=== PATIENT | male | born 1975 | race Caucasian/White ===

== ENCOUNTER 2017-09-13 15:48 | Emergency (ER) | payer OTHER ==
[2017-09-13] MEDS ORDERED: Aspirin Low Dose CHEW TAB* 81 MG PO ONE (15:53)
[2017-09-13] MEDS ORDERED: Nitroglycerin TAB 0.4 MG* 0.4 MG TAB SL ONE (15:54)
--- NOTE | 2017-09-13 16:01 | UC ---
Cardiac HPI - HPI Summary HPI Summary: Chest pain started earlier this afternoon on the toilet. Shaky and weak - History of Current Complaint Stated Complaint: SHORTNESS OF BREATH/SHAKY Time Seen by Provider: 09/13/17 15:52 Hx Obtained From: Patient Onset/Duration: Sudden Onset, Still Present Timing: Constant Initial Severity: Severe Current Severity: Severe Chest Pain Location: Mid Sternal Character: Crushing, Dull/Aching Aggravating Factor(s): Exertion Alleviating Factor(s): Nothing Associated Signs & Symptoms: Positive: Chest Pain, Weakness, SOB, Diaphoresis - Risk Factors Pulmonary Embolism Risk Factors: Smoking Cardiac Risk Factors: Smoking, Family History - Allergy/Home Medications Allergies/Adverse Reactions: Allergies Allergy/AdvReac Type Severity Reaction Status Date / Time environmental Allergy Congestion Uncoded 02/07/16 18:00 PMH/Surg Hx/FS Hx/Imm Hx Previously Healthy: Yes - Surgical History Surgical History: Yes Surgery Procedure, Year, and Place: right ankle, back with 2 carbon fiber frames , two rods with screws - Family History Known Family History: Positive: Cardiac Disease, Hypertension - Social History Occupation: Employed Full-time Lives: With Family Alcohol Use: None Substance Use Type: None Substance Use Comment - Amount & Last Used: 2 pots coffee per day Smoking Status (MU): Light Every Day Tobacco Smoker Have You Smoked in the Last Year: Yes Review of Systems Respiratory: Shortness Of Breath Cardiovascular: Chest Pain Is Patient Immunocompromised?: No All Other Systems Reviewed And Are Negative: Yes Physical Exam Triage Information Reviewed: Yes Appearance: Pain Distress Vital Signs Reviewed: Yes Dental: Positive: Gross Decay/Caries @ Neck exam: Normal Respiratory Exam: Normal Cardiovascular Exam: Normal Abdomen Description: Positive: Nontender, No Organomegaly Neurological Exam: Normal Psychological Exam: Normal Skin Exam: Normal Diagnostics - EKG Cardiac Rate: NL Cardiac Rhythm: Sinus: Normal ST Segment: : Normal - Anterolateral ST elevation C/W acute ND. - Differential Diagnoses - Chest Pain Differential Diagnosis/HQI/PQRI: Acute ND, ACS, Angina - Clinical Impression Provider Diagnoses: Acute ND - Physician Notifications Discussed Patient Care With: Oseas Whaley MD - Transfer to [facility] for acute ND Time Discussed With Above Provider: 16:07 Discharge - Discharge Plan Condition: Critical Disposition: [facility]
[2017-09-13 16:10] VITALS: BP 120/88
[2017-09-13] MEDS ORDERED: NS 0.9% 1000 ML* 1,000 ML IV SCH (16:30)
== END 2017-09-13 16:10 | disposition short-term general hospital (02) ==
LOC: UCCORT 15:48
DX: I21.9 Acute myocardial infarction, unspecified (principal); R53.1 Weakness; F17.210 Nicotine dependence, cigarettes, uncomplicated
CPT/HCPCS: 93005; 99213; A9270-GY; G0463

== ENCOUNTER 2017-09-13 16:41 | Inpatient (IN) | payer OTHER ==
[2017-09-13] MEDS ORDERED: Bivalirudin(*) 250 MG VIAL ONE (17:04)
[2017-09-13] MEDS ORDERED: Heparin 2 UNITS/ML IVPREMIX* 1,000 ML IV ONE (17:24)
[2017-09-13] MEDS ORDERED: Acetaminophen TAB* 325 MG PO PRN (17:33)
[2017-09-13] MEDS ORDERED: oxyCODONE/Acetamin 5/325 MG* TAB PO PRN (17:33)
[2017-09-13] MEDS ORDERED: Nitroglycerin TAB 0.4 MG* 0.4 MG TAB SL PRN (17:33)
[2017-09-13] MEDS ORDERED: Ondansetron INJ* 2 MG/ML VIAL IV PRN (17:33)
[2017-09-13] MEDS ORDERED: Zolpidem TAB* 5 MG PO PRN (17:33)
[2017-09-13] MEDS ORDERED: fentaNYL* 50 MCG/ML 2 ML VIAL (100 MCG VIAL) IV PRN (17:33)
[2017-09-13] MEDS ORDERED: Docusate CAP* 100 MG PO PRN (17:33)
[2017-09-13 17:42] LABS: Hematocrit 34 % (42-52); Hemoglobin 12.2 g/dl (14.0-18.0); Mean Corpuscular HGB Conc 36 g/dl (31-36); Mean Corpuscular Hemoglobin 33 pg (27-31); Mean Corpuscular Volume 92 fL (80-94); Mean Platelet Volume 8 um3 (7.4-10.4); Red Blood Count 3.73 10^6/ul (4.0-5.4); Red Cell Distribution Width 14 % (10.5-15); White Blood Count 9.6 10^3/ul (3.5-10.8)
[2017-09-13] MEDS ORDERED: NS 0.9% 1000 ML* 1,000 ML IV SCH (17:45)
[2017-09-13] MEDS ORDERED: Atorvastatin* 80 MG TAB PO ONE (17:50)
[2017-09-13] MEDS ORDERED: Midazolam* 1 MG/ML 5 ML VIAL (5 MG) ONE (17:57)
[2017-09-13] MEDS ORDERED: fentaNYL* 50 MCG/ML 2 ML VIAL (100 MCG VIAL) ONE (17:57)
[2017-09-13 17:58] LABS: Albumin 3.6 g/dL (3.2-5.2); BUN/Creatinine Ratio 13.8 (8-20); Calcium 8.1 mg/dL (8.6-10.3); EGFR African American 123.2 (>60); EGFR Non-African American 95.8 (>60); Globulin 2.4 g/dL (2-4); Total Bilirubin 0.3 mg/dL (0.2-1.0)
[2017-09-13] MEDS ORDERED: Heparin 2 UNITS/ML IVPREMIX* 3,000 ML IV ONE (17:58)
[2017-09-13] MEDS ORDERED: Iohexol 350 (CONTRAST) 200 ML MDV IV ONE (17:58)
[2017-09-13] MEDS ORDERED: Lidocaine 1% INJ* 10 MG/ML 30 ML SDV ONE (17:58)
[2017-09-13] MEDS ORDERED: nitroGLYCERIN DRIP* 250 ML ONE (17:58)
[2017-09-13 18:02] LABS: Troponin I 2.86 ng/mL (<0.04)
[2017-09-13] MEDS: Metoprolol Tartrate TAB* 25 MG PO SCH ×2 (18:16→22:33)
[2017-09-13] MEDS ORDERED: Heparin VIAL(*) 5000 UNITS/ML VIAL (FIVE THOUSAND) ONE (18:22)
[2017-09-13] MEDS ORDERED: Ticagrelor* 90 MG TAB PO ONE ×2 (18:22→23:00)
[2017-09-13 18:30] LABS: Hematocrit 37 % (42-52); Hemoglobin 13.1 g/dl (14.0-18.0); Mean Corpuscular HGB Conc 36 g/dl (31-36); Mean Corpuscular Hemoglobin 33 pg (27-31); Mean Corpuscular Volume 92 fL (80-94); Mean Platelet Volume 8 um3 (7.4-10.4); Red Blood Count 3.96 10^6/ul (4.0-5.4); Red Cell Distribution Width 14 % (10.5-15); White Blood Count 10.7 10^3/ul (3.5-10.8)
[2017-09-13 18:50] LABS: Albumin 3.9 g/dL (3.2-5.2); BUN/Creatinine Ratio 12.2 (8-20); Calcium 8.6 mg/dL (8.6-10.3); EGFR African American 118.4 (>60); EGFR Non-African American 92.1 (>60); Globulin 2.7 g/dL (2-4); Potassium 3.6 mmol/L (3.5-5.0); Total Bilirubin 0.4 mg/dL (0.2-1.0); Total Protein 6.6 g/dL (6.4-8.9)
[2017-09-13 18:53] LABS: Troponin I 17.93 ng/mL (<0.04)
[2017-09-13 22:42] LABS: Urine Bacteria Absent (Absent); Urine Bilirubin Negative (Negative); Urine Glucose Negative (Negative); Urine Nitrite Negative (Negative)
[2017-09-14 00:13] LABS: Troponin I > 74.00 ng/mL (<0.04)
[2017-09-14 00:30] LABS: Creatine Kinase 2397 U/L (10-223)
[2017-09-14 06:30] LABS: Hematocrit 37 % (42-52); Hemoglobin 12.9 g/dl (14.0-18.0); Mean Corpuscular HGB Conc 35 g/dl (31-36); Mean Corpuscular Hemoglobin 33 pg (27-31); Mean Corpuscular Volume 93 fL (80-94); Mean Platelet Volume 8 um3 (7.4-10.4); Red Blood Count 3.97 10^6/ul (4.0-5.4); Red Cell Distribution Width 14 % (10.5-15); White Blood Count 9.7 10^3/ul (3.5-10.8)
[2017-09-14 06:43] LABS: BUN/Creatinine Ratio 10.7 (8-20); Calcium 9.1 mg/dL (8.6-10.3); EGFR African American 128.3 (>60); EGFR Non-African American 99.7 (>60); Globulin 2.6 g/dL (2-4); Potassium 3.9 mmol/L (3.5-5.0); Total Protein 6.6 g/dL (6.4-8.9)
[2017-09-14] MEDS ORDERED: Perflutren Lipid Microsphere* 3 ML VIAL ONE (07:58)
[2017-09-14 08:29] LABS: Total Bilirubin 0.6 mg/dL (0.2-1.0)
[2017-09-14] MEDS ORDERED: Omeprazole CAP* 20 MG PO SCH (09:00)
[2017-09-14] MEDS: Aspirin Low Dose CHEW TAB* 81 MG PO SCH (09:04)
[2017-09-14] MEDS: Enoxaparin(*) 40 MG/0.4 ML SYR SUBCUT SCH (09:04)
[2017-09-14] MEDS: Atorvastatin* 80 MG TAB PO SCH (09:04)
[2017-09-14] MEDS: Ticagrelor* 90 MG TAB PO SCH ×2 (09:05→21:22)
[2017-09-14] MEDS: Metoprolol Tartrate TAB* 25 MG PO SCH ×2 (09:05→21:22)
--- NOTE | 2017-09-14 09:44 | ECHO ---
Patient: LUIS STEWART [facility] Rec#: [id number] : 1975 Date: 09/14/2017 Age: 42y Height: 175.26 cm / 69.0 in Weight: 74.84 kg / 164.9 lbs Sex: M BSA: 1.9 Room#: ICU 3 Admit Date#: 09/13/2017 Type: Inpatient Referring: Shree Ervin MD Reading: Shree Ervin MD Grey Roll Man: Debbie FergusonRD,RDMS Transthoracic Echocardiogram Indication: STEMI BP: 108/72 HR: 88 Rhythm: NSR with PVCs Findings History: S/P STEMI and PCI. HLD, PE, smoker Technical Comments: The study quality is fair. Completed 0900 Left Ventricle: The left ventricular chamber size is normal. Mild concentric left ventricular hypertrophy is observed. There are multiple regional wall motion abnormalities. There is severe hypo to akinesis of the mid to distal anterior, anterolateral,wall with akinesis of the apical wall and distal anteroseptal wall. The estimated ejection fraction is 35-40%. Visually estimated LVEF is closer to 40 %. Normal left ventricular diastolic filling is observed. Left Atrium: The left atrial chamber size is normal. Right Ventricle: The right ventricular chamber size and systolic function are within normal limits. Right Atrium: The right atrial cavity size is normal. Aortic Valve: The aortic valve is trileaflet. There is no evidence of aortic valve thickening. Systolic excursion of the aortic valve is normal. There is no evidence of aortic regurgitation. There is no evidence of aortic stenosis. Mitral Valve: The mitral valve leaflets appear normal. There is a trace of mitral regurgitation. There is no evidence of mitral stenosis. Tricuspid Valve: The tricuspid valve leaflets are normal. There is mild to moderate tricuspid regurgitation. There is evidence of mild pulmonary hypertension. Pulmonic Valve: There is no evidence of pulmonic valve thickening. There is a trace pulmonic regurgitation. Pericardium: There is no significant pericardial effusion. Aorta: The aortic root appears normal. There is no dilatation of the aortic arch. Pulmonary Artery: The main pulmonary artery appears normal. Venous: The inferior vena cava appears normal in size. There is less than 50% respiratory change in the inferior vena cava dimension. Contrast: Definity was used to optimize study. A total of 3 ml was used Conclusions Mild concentric left ventricular hypertrophy is observed. There are multiple regional wall motion abnormalities. There is severe hypo to akinesis of the mid to distal anterior, anterolateral,wall with akinesis of the apical wall and distal anteroseptal wall. The estimated ejection fraction is 35-40%. Visually estimated LVEF is closer to 40 %. There is a trace of mitral regurgitation. There is mild to moderate tricuspid regurgitation. No reports of prior studies offered for comparison. There is evidence of mild pulmonary hypertension. There is a trace pulmonic regurgitation. Measurements Name Value Normal Range RVIDd (AP) 2D 2.8 cm (0.9 - 2.6) RVDdMajor (2D) 2.8 cm (2.2 - 4.4) RAd ISD 4CH 4 cm (3.4 - 4.9) RA (A4C)W 3.6 cm (2.9 - 4.6) IVSd (2D) 1.2 cm (0.6 - 1) LVPWd (2D) 1.3 cm (0.6 - 1) LVIDd (2D) 4.7 cm (3.6 - 5.4) LVIDs (2D) 2.7 cm - LV FS (2D) 42 % (25 - 45) Aortic Annulus 2 cm (1.4 - 2.6) Ao root diameter (2D) 3.2 cm (2.1 - 3.5) Ascending Ao 2.9 cm (2.1 - 3.4) Aortic arch 2.2 cm (1.8 - 3.4) LA dimension (AP) 2D 3.3 cm (2.3 - 3.8) LAd ISD 4CH 5.5 cm (2.9 - 5.3) LA ISD 4CH W 3.8 cm (2.5 - 4.5) Name Value Normal Range LA ESV SP 4CH (A/L) 59.01 ml - LA ESV SP 2CH (A/L) 47.97 ml - LA ESV BP (A/L) 56.32 ml - LA ESV BP (A/L) index 29.5 ml/m2 - LA ESV SP 4CH (MOD) 53.07 ml - LA ESV SP 2CH (MOD) 44.62 ml - Name Value Normal Range MV E-wave Vmax 0.6 m/sec - MV deceleration time 200 msec - MV A-wave Vmax 0.5 m/sec - MV E:A ratio 1.2 ratio - P. vein S-wave Vmax 0.7 m/sec - P. vein D-wave Vmax 0.5 m/sec - P. vein S:D Vmax ratio 1.6 ratio - P. vein A-wave duration 107 msec - LV septal e' Vmax 0.09 m/sec - LV lateral e' Vmax 0.08 m/sec - LV E:e' septal ratio 7 ratio - LV E:e' lateral ratio 7.5 ratio - Name Value Normal Range AV Vmax 1.4 m/sec - AV VTI 28.5 cm - AV peak gradient 8 mmHg - AV mean gradient 4.1 mmHg - LVOT Vmax 1 m/sec - LVOT VTI 21.1 cm - LVOT peak gradient 4 mmHg - LVOT mean gradient 2.1 mmHg - KRYSTLE Vmax 0.8 m/sec - Name Value Normal Range TR Vmax 2.6 m/sec - TR peak gradient 27 mmHg - RAP 8 mmHg - RVSP 35 mmHg - IVC diameter 2.4 cm - Name Value Normal Range PV Vmax 0.8 m/sec - PV peak gradient 2.6 mmHg -
[2017-09-14] MEDS ORDERED: Metoprolol Tartrate TAB* 25 MG PO ONE (09:45)
--- NOTE | 2017-09-14 09:56 | RAD ---
INDICATION: STEMI. COMPARISON: Comparison is made with a prior chest x-ray study from August 14, 2014. TECHNIQUE: A portable view of the chest was obtained. FINDINGS: Cardiac and mediastinal contours appear to be within normal limits. The lungs are clear. There is elevation of the right hemidiaphragm. There is blunting of the right costophrenic angle possibly representing a small pleural effusion. IMPRESSION: POSSIBLE SMALL RIGHT PLEURAL EFFUSION.
[2017-09-14] MEDS ORDERED: Captopril TAB* 12.5 MG PO SCH (10:00)
[2017-09-14] MEDS: Captopril TAB* 12.5 MG PO SCH ×3 (10:28→21:21)
[2017-09-14 10:51] LABS: Troponin I 50.66 ng/mL (<0.04)
--- NOTE | 2017-09-14 12:35 | HP ---
HISTORY AND PHYSICAL: DATE OF ADMISSION: 09/13/17 CHIEF COMPLAINT: Chest discomfort with acute ST-segment elevation anterior wall myocardial infarction. HISTORY OF PRESENT ILLNESS: The patient is a 42-year-old gentleman, who was in his usual state of health until this afternoon at approximately 1:15 when he developed the onset of mid sternal chest discomfort, crushing in nature with radiation to the left arm. It was associated with weakness, shortness of breath , and diaphoresis. He eventually sought medical attention, waiting for his to come back home, and she came home and took him to [facility] in [place]. They arrived there at 3:48 p.m. An EKG was done immediately demonstrating acute ST-segment elevation anterior NE, he was transferred to [facility] and arrived in our ER at 1641. The patient was still having ongoing symptoms. Repeat EKG demonstrated ST- segment elevations as the patient was given Brilinta 180 mg and 4000 units of heparin in preparation to emergent cardiac catheterization. The risks and benefits were explained to him and the patient was examined and history was obtained. He understood it and wished to proceed emergently. PAST MEDICAL HISTORY: Significant for hyperlipidemia in addition to an anxiety disorder in addition to pulmonary emboli from DVT following surgery for ankle fracture with his anticoagulation stopped some 2 months ago. He denied any known history of diabetes or hypertension. CARDIAC RISK FACTORS: Include smoking. HOME MEDICATIONS: Include: 1. OxyContin. 2. Pantoprazole. 3. Trazodone. 4. Crestor 20 mg a day. FAMILY HISTORY: Hyperlipidemia, the patient denied diabetes or hypertension. REVIEW OF SYSTEMS: Pertinent to proceeding emergently to the cardiovascular laboratory: The patient denied any history of hematochezia, hematemesis, or hematuria. He has had no history of stroke or TIA. He has no history of renal insufficiency to the best of his knowledge and he is not allergic to contrast agents. He is having ongoing chest discomfort and mild shortness of breath as mentioned. PHYSICAL EXAMINATION VITAL SIGNS: When I saw him revealed vital signs: Blood pressure 158/88 with a pulse of 98, respirations were 20, O2 saturations 98% on room air, afebrile. HEENT: Conjunctivae pink. Sclerae clear. Mouth revealed moist mucosa. NECK: Supple. No increased JVP. Carotids had fair upstroke and volume. I cannot appreciate any definitive bruits. LUNGS: Revealed no accessory muscle usage. There were coarse breath sounds bilaterally with slight wheeze noted. HEART: Revealed no visible heaves, no palpable heaves or thrills. Heart sounds were somewhat distant in nature. Normal S1, S2. There was no significant systolic or diastolic murmur. ABDOMEN: Soft, nontender. EXTREMITIES: Without edema. Peripheral pulses were intact. Femoral pulse noted without bruit. NEURO: The patient is alert and oriented with normal mentation. MUSCULOSKELETAL: The patient moves all extremities appropriately. PSYCHOLOGICAL: The patient with normal affect. DIAGNOSTIC STUDIES: Repeat EKG done in the emergency room timed 1648 revealed sinus rhythm, heart rate 74, ST-segment elevation noted mildly in I, aVL with reciprocal changes in III and aVF, ST-segment elevation somewhat, peaked T waves were seen in V2 through V5 and minimally in V6, poor R waves were already identified in V2 and V3 with small Q wave already present in V4 through V6 and I and aVL. OVERALL ASSESSMENT: Lele presents now with slightly late presentation (almost 4 hours) into an anterior wall myocardial infarction. The patient has received heparin therapy, Brilinta therapy, aspirin therapy, and we will take him emergently to the cardiovascular laboratory for emergent intervention. He understands the risks and benefits and wishes to proceed and further management will be made pending results of the cardiac catheterization. [id number]/[facility] #: [id number] AMARILIS
[2017-09-14] MEDS ORDERED: Bismuth Subsalicylate* 524 MG/30 ML BTL PO PRN (14:27)
[2017-09-14] MEDS ORDERED: Al Hydrox/Mg Hydrox/Simet LIQ* 30 ML UDC PO PRN (14:57)
[2017-09-14] MEDS ORDERED: Omeprazole CAP* 20 MG PO ONE (15:00)
--- NOTE | 2017-09-14 18:24 | CATH ---
CARDIAC CATHETERIZATION AND INTERVENTIONAL REPORT: DATE OF PROCEDURE: 09/13/17 INDICATION FOR PROCEDURE: The patient presents with acute ST-segment elevation anterior wall myocardial infarction. PROCEDURE: The procedure was coronary arteriography, primary stenting of the proximal left anterior descending artery with a 2.75 x 16 mm long Synergy drug- eluting stent dilated to high pressure to obtain 2.9 mm, left heart catheterization, left ventriculography. DESCRIPTION OF PROCEDURE: The patient was interviewed and examined in the emergency room where the patient was in the throes of an acute anterior wall myocardial infarction. The risks and benefits were explained to him, he understood them, and wished to proceed. He was brought emergently to the cardiovascular laboratory, where a formal time-out was performed. The patient was prepped and draped in sterile fashion. The right groin area was anesthetized with 1% lidocaine. The right femoral artery was cannulated and a 6 -Tuvaluan introducer was placed. Coronary arteriography was performed utilizing a 5-Tuvaluan 4 curve right coronary catheter and guiding views were obtained using a VL 3.5 curve 6-Tuvaluan guide catheter. Of note, the patient had already received 4000 units of heparin in the emergency room and 180 mg of ticagrelor and full dose of 325 of aspirin. ACT was checked and found to be subtherapeutic and received a bolus of Angiomax and Angiomax drip was started. An 0.014 regular length All Star wire was advanced down the left anterior descending artery and primary stenting was performed with a 2.75 x 16 mm Synergy stent dilated to high pressure with no residual narrowing noted. The artery was then assessed both with wire in place and wire removed. Following this, a 5-Tuvaluan pigtail catheter was advanced to the ascending aorta where central aortic pressure was recorded. The catheter was then passed across the aortic valve into the left ventricle. The left ventricular pressure was recorded. The left ventriculography was performed utilizing a total of 24 cc of Omnipaque dye at a rate of 12 cc per second. The catheter was pulled back across the aortic valve to recheck gradient. At the end of the case, the catheter was removed and the sheath was sutured in place to be removed and hemostasis controlled with manual pressure in the intensive care unit. The patient was stable with resolution of his chest discomfort by the end of the case. The total contrast used was 140 cc of Omnipaque dye. The radiation exposure included 7.9 minutes of fluoro time. The air kerma radiation was 753 milligray. The DAP radiation was 4389 microgray/sq. m. RESULTS: HEMODYNAMIC DATA: Left heart catheterization - central aortic pressure was recorded at 113/73 with a mean of 92, left ventricular pressure 110 over left ventricular end- diastolic pressure of 20. LEFT VENTRICULOGRAPHY: Performed in the RIBEIRO projection revealed virtual akinesis of the mid-to- distal anterior wall and apical region with hyperdynamic contractility of the proximal and [id number] inferior wall. Overall ejection fraction estimated at 35% to 40%. No significant mitral regurgitation was seen. CORONARY ARTERIOGRAPHY: A. Left coronary artery: 1. Left main - widely patent with no significant stenosis seen. 2. Left anterior descending artery. The proximal portion of the left anterior descending artery had a 30% narrowing noted. Past this point after the first septal electrical sign wirer, there was a subtotally occluded LAD with 99% stenosis and PRADEEP I flow. It barely filled past this point showing a mid diagonal branch. On reconstitution of the vessel, it supplied multiple diagonal branches. There was a mild 25% to 30% narrowing seen just prior to the stented area. 3. Circumflex artery - a nondominant vessel supplying a high trifurcation marginal branch followed by a moderate-sized mid obtuse marginal branch which extended to low posterolateral and apical region. The continuation of the circumflex supplied a small low-lying posterior left ventricular branch. There was no significant stenosis seen throughout the course of the circumflex artery. B. Right coronary artery - a dominant vessel supplying multiple acute marginal branches, a small caliber PDA, and a larger first posterior left ventricular branch, followed by a thin second posterior left ventricular branch. There was [id number] disease in the proximal portion of the right coronary artery of 35% to 40%. The mid segment had a narrowing of 55% to 60%. There was mild disease seen in the distal vessel of 20%. INTERVENTION INTO SUBTOTALLY OCCLUDED LEFT ANTERIOR DESCENDING ARTERY: Successful reconstitution of subtotally occluded left anterior descending artery with primary stenting utilizing 2.75 x 16 mm long Synergy drug-eluting stent dilated to 2.9 mm with PRADEEP III flow, no dissection seen, and 0% residual stenosis. OVERALL ASSESSMENT: Significant coronary artery disease involving the left anterior descending artery after the take off of the first septal electrical sign wirer (mid left anterior descending artery) with critical 99% PRADEEP I flow lesion, successfully treated as described above. The patient has residual disease most importantly with the mid right coronary artery with 55% to 60% blockage, which will be assessed at a later time. Of note, given the fact that the patient presented several hours into his anterior wall myocardial infarction, most likely SERGIO inhibition in addition to beta-natividad therapy will be instituted in addition to high-dose statin therapy and dual antiplatelet therapy. The patient has a history of smoking, which clearly will need to be addressed in order to stabilize his cardiac status. Further management will be made during the hospital course with adjustment of medications as prescribed. [id number]/[facility] #: [id number] MTDD
[2017-09-14] MEDS ORDERED: NS 0.9% 1000 ML* 1,000 ML IV SCH (18:30)
[2017-09-14] MEDS ORDERED: NS 0.9% 250 ML* 250 ML IV ONE (19:00)
[2017-09-15] MEDS: Atorvastatin* 80 MG TAB PO SCH (08:43)
[2017-09-15] MEDS: Omeprazole CAP* 20 MG PO SCH (08:43)
[2017-09-15] MEDS: Enoxaparin(*) 40 MG/0.4 ML SYR SUBCUT SCH (08:43)
[2017-09-15] MEDS: Metoprolol Tartrate TAB* 25 MG PO SCH ×2 (08:44→22:25)
[2017-09-15] MEDS: Aspirin Low Dose CHEW TAB* 81 MG PO SCH (08:44)
[2017-09-15] MEDS: Ticagrelor* 90 MG TAB PO SCH ×2 (08:44→22:25)
[2017-09-15] MEDS: Captopril TAB* 12.5 MG PO SCH ×3 (08:44→22:25)
[2017-09-15 09:55] LABS: BUN/Creatinine Ratio 9.7 (8-20); Calcium 9.6 mg/dL (8.6-10.3); EGFR Non-African American 88.7 (>60); Potassium 3.9 mmol/L (3.5-5.0)
[2017-09-15] MEDS: Venlafaxine EXT RELEASE CAP* 37.5 MG PO SCH (12:28)
[2017-09-16] MEDS: Enoxaparin(*) 40 MG/0.4 ML SYR SUBCUT SCH (08:27)
[2017-09-16] MEDS: Atorvastatin* 80 MG TAB PO SCH (08:27)
[2017-09-16] MEDS: Omeprazole CAP* 20 MG PO SCH (08:27)
[2017-09-16] MEDS: Aspirin Low Dose CHEW TAB* 81 MG PO SCH (08:27)
[2017-09-16] MEDS: Ticagrelor* 90 MG TAB PO SCH ×2 (08:27→21:52)
[2017-09-16] MEDS: Venlafaxine EXT RELEASE CAP* 37.5 MG PO SCH (08:28)
[2017-09-16] MEDS: Metoprolol Tartrate TAB* 25 MG PO SCH ×2 (08:28→21:53)
[2017-09-16] MEDS: Captopril TAB* 12.5 MG PO SCH ×3 (08:28→21:52)
[2017-09-16 09:55] LABS: BUN/Creatinine Ratio 15.9 (8-20); Calcium 9.7 mg/dL (8.6-10.3); EGFR African American 121.6 (>60); EGFR Non-African American 94.5 (>60); Potassium 3.7 mmol/L (3.5-5.0)
--- NOTE | 2017-09-16 13:36 | ED ---
Evy Ortega Edward, scribed for Jameson Whaley MD on 09/13/17 at 1648 . 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 PT was trying to have a bowel movement when it started. The pt became diaphoretic and dizzy. The pain is a 9-10/10 constant pain located substernally near the shoulder radiating up to the jaw @ the L side and down the L arm. The pt also c/o of numbness in the L arm. PMHx hypotensive, PE couple of months ago. Pt states he has stopped taking blood thinners a couple of months ago. SHx knee surgery s/p shattered knee. - History of Current Complaint Hx Obtained From: Patient, EMS Onset/Duration: Started Hours Ago, Still Present Timing: Constant Current Severity: Severe Pain Intensity: 10 Pain Scale Used: 0-10 Numeric Chest Pain Location: Left Lateral Chest Pain Radiates: Yes Chest Pain Radiates To:: Arm - L, Jaw - L side Aggravating Factor(s): Nothing Alleviating Factor(s): Nothing Associated Signs and Symptoms: Positive: Chest Pain, Dizziness, Diaphoresis - Allergy/Home Medications Allergies/Adverse Reactions: Allergies Allergy/AdvReac Type Severity Reaction Status Date / Time No Known Drug Allergy Allergy See Comment Verified 09/16/17 11:09 environmental Allergy Congestion Uncoded 02/07/16 18:00 PMH/Surg Hx/FS Hx/Imm Hx Previously Healthy: No Cardiovascular History: Reports: Hx Hypotension Respiratory History: Reports: Hx Pulmonary Embolism - Surgical History Surgery Procedure, Year, and Place: right ankle, back with 2 carbon fiber frames , two rods with screws - Family History Known Family History: Positive: Cardiac Disease, Hypertension - Social History Alcohol Use: None Hx Substance Use: Yes Substance Use Type: Reports: Excessive Caffeine Substance Use Comment - Amount & Last Used: 2 pots coffee per day Hx Tobacco Use: No Smoking Status (MU): Light Every Day Tobacco Smoker Have You Smoked in the Last Year: Yes Review of Systems Positive: Skin Diaphoresis Eyes: Negative ENT: Negative Positive: Chest Pain Respiratory: Negative Gastrointestinal: Negative Genitourinary: Negative Musculoskeletal: Negative Skin: Negative Neurological: Other - Dizziness Psychological: Normal All Other Systems Reviewed And Are Negative: Yes Physical Exam - Summary Physical Exam Summary: VITAL SIGNS: Reviewed. GENERAL: Patient is a well-developed and nourished male who is lying comfortable in the stretcher. Patient is not in any acute respiratory distress. HEAD AND FACE: No signs of trauma. No ecchymosis, hematomas or skull depressions. No sinus tenderness. EYES: PERRLA, EOMI x 2, No injected conjunctiva, no nystagmus. EARS: Hearing grossly intact. Ear canals and tympanic membranes are within normal limits. MOUTH: Oropharynx within normal limits. NECK: Supple, trachea is midline, no adenopathy, no JVD, no carotid bruit, no c- spine tenderness, neck with full ROM. CHEST: Symmetric, no tenderness at palpation LUNGS: Clear to auscultation bilaterally. No wheezing or crackles. CVS: Regular rate and rhythm, S1 and S2 present, no murmurs or gallops appreciated. ABDOMEN: Soft, non-tender. No signs of distention. No rebound no guarding, and no masses palpated. Bowel sounds are normal. EXTREMITIES: FROM in all major joints, no edema, no cyanosis or clubbing. NEURO: Alert and oriented x 3. No acute neurological deficits. Speech is normal and follows commands. SKIN: Dry and warm Triage Information Reviewed: Yes Vital Signs On Initial Exam: Initial Vitals Temp Pulse Resp BP Pulse Ox 98.7 F 98 20 158/88 98 09/13/17 17:04 09/13/17 17:04 09/13/17 17:04 09/13/17 17:04 09/13/17 17:04 Vital Signs Reviewed: Yes Diagnostics - Vital Signs Vital Signs Temp Pulse Resp BP Pulse Ox 09/13/17 17:04 98.7 F 98 20 158/88 98 - Laboratory Result Diagrams: 09/14/17 06:10 09/16/17 09:19 Lab Statement: Any lab studies that have been ordered have been reviewed, and results considered in the medical decision making process. - EKG 1 EKG Interpretation: ST elevations in I, aVL, V2-V6. 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 PT was trying to have a bowel movement when it started. The pt became diaphoretic and dizzy. The pain is a 9-10/10 constant pain located substernally near the shoulder radiating up to the jaw @ the L side and down the L arm. The pt also c/o of numbness in the L arm. PMHx hypotensive, PE couple of months ago. Pt states he has stopped taking blood thinners a couple of months ago. SHx knee surgery s/p shattered knee. Pt has an ST elevation MS seen by Dr. Ervin, confirmed by Dr. Ervin. Ordered a Brilinta and heparin. The pt already has been given ASA, 3 NTG, 2 doses of morphine; however the pt continues to have CP. Dr. Ervin will be taking the pt to the sleep lab technologist at this time. Pt is still A&Ox3 and hemodynamically stable. I ordered the bloodwork, EKG , Brilinta and Heparin. When the pt arrived in the ED I was informed by the nurse that they would not have sufficient time to draw the blood. The pt will be transferred to the sleep lab technologist immediately. - Chest Pain Differential Diagnosis/HQI/PQRI: Acute MS, ACS, Angina, Aortic Aneurysm, CHF, GI Disease - Diagnoses Provider Diagnoses: ST elevation MS (STEMI) - Provider Notifications Discussed Care Of Patient With: Shree Ervin Time Discussed With Above Provider: 16:40 Instructed by Provider To: Admit As Inpatient Discharge - Discharge Plan Condition: Stable Disposition: ADMITTED TO [facility] The documentation as recorded by the Evy rutledge Edward accurately reflects the service I personally performed and the decisions made by me, Jameson Whaley MD.
[2017-09-17 08:25] VITALS: BP 104/64
[2017-09-17] MEDS: Aspirin Low Dose CHEW TAB* 81 MG PO SCH (08:25)
[2017-09-17] MEDS: Omeprazole CAP* 20 MG PO SCH (08:25)
[2017-09-17] MEDS: Atorvastatin* 80 MG TAB PO SCH (08:25)
[2017-09-17] MEDS: Venlafaxine EXT RELEASE CAP* 37.5 MG PO SCH (08:26)
[2017-09-17] MEDS: Ticagrelor* 90 MG TAB PO SCH (08:26)
[2017-09-17] MEDS: Enoxaparin(*) 40 MG/0.4 ML SYR SUBCUT SCH (08:26)
[2017-09-17] MEDS ORDERED: Metoprolol Succinate XL TAB* 50 MG PO SCH (09:00)
[2017-09-17] MEDS ORDERED: Lisinopril TAB* 10 MG PO SCH (09:00)
[2017-09-17 10:04] LABS: BUN/Creatinine Ratio 15.2 (8-20); Calcium 10.1 mg/dL (8.6-10.3); EGFR African American 115.5 (>60); EGFR Non-African American 89.8 (>60); Potassium 3.8 mmol/L (3.5-5.0)
--- NOTE | 2017-09-17 10:12 | RAD ---
INDICATION: Follow-up effusion. History of tobacco use. Myocardial infarction September 14, 2017. COMPARISON: September 14, 2017 TECHNIQUE: Dual energy PA and routine lateral views of the chest were obtained. REPORT: Elevated lung volumes with increased AP thoracic diameter. Clear lungs and pleural spaces. Negative for pneumothorax. The heart, pulmonary vasculature, and mediastinal contours are unremarkable. Unremarkable osseous structures and soft tissue contours. IMPRESSION: Negative for pleural effusions. Negative for pulmonary edema.
--- NOTE | 2017-09-17 12:03 | DS ---
CC: Dr. Ervin. DISCHARGE SUMMARY: DATE OF ADMISSION: 09/13/17 DATE OF DISCHARGE: 09/17/17 RETIREMENT CONSULTANT: Dr. Ervin. DISCHARGE DIAGNOSES: 1. Anterior wall ST elevation infarct. 2. Tobacco use. 3. Hyperlipidemia. 4. Anxiety disorder. 5. Prior pulmonary embolus. PROCEDURE: Cardiac cath, stent placement LAD 2.7 x 16 Synergy drug-eluting stent. Echocardiogram, t elemetry. CONDITION ON DISCHARGE: Stable. DISCHARGE MEDICATIONS: 1. Aspirin 81 mg daily. 2. Lipitor 80 mg daily. 3. Lisinopril 10 mg daily. 4. Toprol-XL 50 mg daily. 5. Nitroglycerin 0.4 sublingual p.r.n. 6. Brilinta 90 b.i.d. 7. Continue albuterol. 8. Effexor XR. 9. Protonix. HISTORY: See H and P. LABORATORY DATA: On 09/16/17, BNP remained stable with creatinine 0.88. Electrolytes normal. CPK-M B peaked at 314.6, troponin greater than 74. CPK peaked at 2397. BNP was normal at 31. Chest x-ra y was read as showing a possible small right pleural effusion, repeat PA and lateral is pending. Ec hocardiogram on 09/14/17, reported EF of 35 to 40, visual EF closer to 40. There was an anterior ap ical wall motion abnormality. EKG on 09/15/17, consistent with anterolateral infarct with poor R-wa ve progression, V1 through V3 with anterolateral T-wave inversion. HOSPITAL COURSE: He presented with an anterolateral ST elevation infarct, underwent catheterization by Dr. Ervin with the finding of a culprit mid LAD stenosis as above. LV gram showed akinesis of the anterior apex, angiographic EF 35 to 40. There was no MR noted. The mid RCA had a 55% residual stenosis. He received secondary risk factor modification recommendations. He is committed to not to resume smoking. He tolerated gradual increasing doses of beta natividad, as well as SERGIO inhibitor. He is on high dose statin. He is tolerating dual antiplatelet therapy. I anticipate, he will be discharged today after his PA and lateral chest x-ray for followup of the small possible pleural eff usion. On telemetry, he has not had any significant arrhythmias on telemetry with ambulation. On hi s day of discharge, vitals are stable, exam is unremarkable, his right groin side is normal without hematoma or bruit. Pedal pulses are palpable. [id number]/[facility] #: [id number]
--- NOTE | 2017-09-18 04:38 | DS ---
ADDENDUM: Chest x-ray, PA and lateral on 09/17/17 was normal, without any evidence of pleural effusion. [id number]/[facility] #: [id number] [facility]
== END 2017-09-17 12:13 | disposition home or self-care (01) | DRG 174 ==
LOC: ED 16:41 → ICU 17:11 → MEDTELE 09-15 12:49
PROVIDERS: ADMIT Internal Medicine Cardiovascular Disease; ATTEND Internal Medicine Cardiovascular Disease
PROC: 3E03317 Introduction of Other Thrombolytic into Peripheral Vein, Percutaneous Approach (ICD-10-PCS; 2017-09-13)
PROC: B2111ZZ Fluoroscopy of Multiple Coronary Arteries using Low Osmolar Contrast (ICD-10-PCS; 2017-09-13)
PROC: 4A023N7 Measurement of Cardiac Sampling and Pressure, Left Heart, Percutaneous Approach (ICD-10-PCS; 2017-09-13)
PROC: B2151ZZ Fluoroscopy of Left Heart using Low Osmolar Contrast (ICD-10-PCS; 2017-09-13)
PROC: 027034Z Dilation of Coronary Artery, One Artery with Drug-eluting Intraluminal Device, Percutaneous Approach (ICD-10-PCS; principal; 2017-09-13 15:00)
DX: I21.09 ST elevation (STEMI) myocardial infarction involving other coronary artery of anterior wall (principal); E78.5 Hyperlipidemia, unspecified; F41.9 Anxiety disorder, unspecified; F15.90 Other stimulant use, unspecified, uncomplicated; F17.200 Nicotine dependence, unspecified, uncomplicated; I25.10 Atherosclerotic heart disease of native coronary artery without angina pectoris; Z86.711 Personal history of pulmonary embolism; Z82.49 Family history of ischemic heart disease and other diseases of the circulatory system; Z79.82 Long term (current) use of aspirin; Z79.02 Long term (current) use of antithrombotics/antiplatelets; Z86.718 Personal history of other venous thrombosis and embolism
CPT/HCPCS: 36415; 71010; 71020; 80048; 80053; 80061; 81003; 81015; 82550; 82553; 83605; 83721; 83874; 83880; 84484; 85025; 85027; 85610; 85730; 87641; 93005; 93306; 99156; 99157; 99406; A9270-GY; C1876; C1887; C8929; C9606-LD; J0583; J1644; J1650; J2001; J2250; J3010

== ENCOUNTER 2018-02-25 11:58 | Emergency (ER) | payer OTHER ==
[2018-02-25 12:55] VITALS: BP 98/70
--- NOTE | 2018-02-25 13:19 | UC ---
[facility] HPI - HPI Summary HPI Summary: Fan low posterior dental pain. This has been going on for the past year or so but it is worse inthe last week. No fever swelling. - History of Current Complaint Chief Complaint: UCDentalProblem Stated Complaint: DENTAL COMPLAINT Time Seen by Provider: 02/25/18 12:48 Hx Obtained From: Patient Onset/Duration: Gradual Onset, Lasting Days Severity: Moderate Pain Intensity: 10 Aggravating Factor(s): Chewing Alleviating Factor(s): Topical Meds Related History: Previous Dental Care on Same Tooth - Allergies/Home Medications Allergies/Adverse Reactions: Allergies Allergy/AdvReac Type Severity Reaction Status Date / Time environmental Allergy Congestion Uncoded 02/25/18 12:38 Home Medications: Home Medications Aspirin Low Dose CHEW TAB* [Aspirin Low Dose TAB*] 81 mg PO DAILY 02/25/18 [ History Confirmed 02/25/18] Atorvastatin* [Lipitor*] 80 mg PO DAILY 02/25/18 [History Confirmed 02/25/18] Folic Acid TAB* [Folvite TAB*] 1 mg PO DAILY 02/25/18 [History Confirmed ] Kanka Soft [place], Topical PRN 02/25/18 [History] Lisinopril TAB* [Prinivil TAB*] 10 mg PO DAILY 02/25/18 [History Confirmed 02/25] Metoprolol Succinate 50 mg PO DAILY 02/25/18 [History Confirmed 02/25/18] Nitroglycerin TAB 0.4 MG* 0.4 mg SL Q5M PRN 02/25/18 [History Confirmed 02/25/18 ] Pantoprazole Sodium 40 mg PO DAILY 02/25/18 [History Confirmed 02/25/18] Ticagrelor* [Brilinta*] 90 mg PO BID 02/25/18 [History Confirmed 02/25/18] Venlafaxine HCl [Effexor XR-] 37.5 mg PO DAILY 02/25/18 [History Confirmed 02/25] PMH/Surg Hx/FS Hx/Imm Hx Previously Healthy: No Cardiovascular History: Cardiac Disease - Surgical History Surgical History: Yes Surgery Procedure, Year, and Place: right ankle, back with 2 carbon fiber frames , two rods with screws. CARDIAC STENTS 08/2017. LEFT KNEE SURGERY - Family History Known Family History: Positive: Cardiac Disease, Hypertension - Social History Alcohol Use: None Substance Use Type: Excessive Caffeine Substance Use Comment - Amount & Last Used: 2 pots coffee per day Smoking Status (MU): Light Every Day Tobacco Smoker Type: Cigarettes Amount Used/How Often: 5 CIGS PER DAY Have You Smoked in the Last Year: Yes - Immunization History Most Recent Influenza Vaccination: July 2017 Most Recent Pneumonia Vaccination: July 2017 Review of Systems ENT: Dental Pain All Other Systems Reviewed And Are Negative: Yes Physical Exam Triage Information Reviewed: Yes Appearance: Well-Appearing, No Pain Distress, Well-Nourished Vital Signs: Initial Vital Signs Temp 97.8 F 02/25/18 12:47 Pulse 76 02/25/18 12:47 Resp 18 02/25/18 12:47 BP 98/70 02/25/18 12:47 Pulse Ox 98 02/25/18 12:47 Vital Signs Reviewed: Yes Eyes: Positive: Conjunctiva Clear Dental Exam: Other - diffuse dental decay and gingivitis. NO gum swelling, facial swelling or neck adenopathy. Neck exam: Normal Neck: Positive: Supple, Nontender, No Lymphadenopathy. Negative: Nuchal Rigidity Respiratory: Positive: Normal breath sounds, No respiratory distress, No accessory muscle use, Respiratory distress, Decreased breath sounds, Accessory muscle use, Crackles, Rhonchi, Stridor, Wheezing Cardiovascular: Positive: No Murmur, Pulses Normal, Brisk Capillary Refill Abdomen Description: Positive: No Organomegaly, Soft. Negative: Distended, Guarding Musculoskeletal: Positive: Strength Intact, ROM Intact, No Edema Neurological: Positive: Alert, Muscle Tone Normal, Fatigued Psychological: Positive: Age Appropriate Behavior Skin: Negative: rashes Dental Complaint Course/Dx - Differential Dx/Diagnosis Provider Diagnoses: dental pain. dental decay. gingivitis. Discharge - Sign-Out/Discharge Documenting (check all that apply): Discharge - Discharge Plan Condition: Good Disposition: HOME Prescriptions: Clindamycin Cap(NF) [Clindamycin Cap 300 mg Cap(NF)] 300 mg PO TID #30 cap Patient Education Materials: Toothache (ED), Gingivostomatitis (ED) Referrals: No Primary Care Phys,NOPCP [Primary Care Provider] - ROBERT CHA [Doctor of Dental Surgery] - Zack RAMIREZ,Silvia [Doctor of Dental Surgery] - Tien Alexander DDS,Elias Rosario [Doctor of Dental Surgery] - Ángel RAMIREZ,Andrey Fall [Medical Doctor] - Tina DMD,Marissa Rivera [Doctor of Dental Medicine] - Staci Alexander DDS,Jesus Gann [Doctor of Dental Surgery] - Owen LOREDOS,Jad Hood [Doctor of Dental Surgery] - Sheyla LOREDOS,Dean Dockery [Doctor of Dental Surgery] - Vasu DMD,Rosa [Doctor of Dental Medicine] - Florencio BOO DDS,Marty [Doctor of Dental Surgery] - Lyubov DMD,Kelvin [Doctor of Dental Medicine] - Melissa LOREDOS,Gerald [Doctor of Dental Surgery] - Gustavo LOREDOS,Kyle Fall [Doctor of Dental Surgery] - Dedrick LOREDOS,Dylon Rosario [Doctor of Dental Surgery] - Kermit DMD,Ganesh Alvarado [Doctor of Dental Medicine] - Carlos Day DDS [Medical Doctor] - Kendra OSORIO ,Kyle Blas [Doctor of Dental Medicine] - Yo DMD,Theodore Mosqueda [Doctor of Dental Medicine] - Samson OSORIO,Bora Rivera [Doctor of Dental Medicine] - Brooke DMD,Josiah Agrawal [Doctor of Dental Medicine] - Abdiel LOREDOS,Nyla Rivas [Doctor of Dental Surgery] - Hill Overton DDS [Doctor of Dental Surgery] - Bora Bennett MD [Doctor of Dental Medicine] - Brianna RAMIREZ,Jeanie Murguia [Doctor of Dental Surgery] - Elsie LOREDOS,Kelvin Fall [Doctor of Dental Surgery] - Marco A OSORIO,Scott Agrawal [Doctor of Dental Medicine] - - Billing Disposition and Condition Condition: GOOD Disposition: HOME
== END 2018-02-25 13:25 | disposition home or self-care (01) ==
LOC: UCCORT 11:58
DX: K02.9 Dental caries, unspecified (principal); K05.10 Chronic gingivitis, plaque induced; F17.210 Nicotine dependence, cigarettes, uncomplicated
CPT/HCPCS: 99212; G0463

== ENCOUNTER 2018-06-18 15:49 | Emergency (ER) | payer OTHER ==
--- OUTSIDE RECORDS SUMMARY | 2018-06-18 16:02 | XMS REPORT ---
:1975 External Reference #:[id number] Author Organization [facility] Address [address], [address] [place] [address] Phone [phone] Care Team Providers Name Role Phone Kam Silver MD Care Team Information [employer] Manager Unavailable Kam Silver MD Primary Care Physician Unavailable Payers Type Date Identification Numbers Payment Provider Subscriber Commercial Policy Number: [id number] [place] [employer] Lele D Button PayID: [id number] [address] [place] [address] Medicaid Policy Number: [id number] Medicaid Lele D Button PayID: [id number] [address] [place] [address] Problems Date Description Provider Status Onset: 07/19/2015 Migraine Fadia Alejandre PA-C Active Onset: 07/19/2015 Chau's esophagus Fadia Alejandre PA-C Active Note: > 1st upper to D3 2013; May 2016. EGD due 2643-2054. Onset: 07/19/2015 Hyperlipidemia Fadia Alejandre PA-C Active Note: March 2016 LDL 213 HDL 32 TG 229 chol 313; insurance will not cover rosuvastatin (even after appeal) Onset: 07/19/2015 Gastroesophageal reflux disease Fadia Alejandre PA-C Active Onset: 07/19/2015 Low back pain Fadia Alejandre PA-C Active Onset: 08/31/2015 Adult health examination Fadia Alejandre PA-C Active Note: HIV- Aug 2015. AWV 10 Oct 2015. Onset: 08/31/2015 Klinefelter's syndrome Fadia Alejandre PA-C Active Onset: 08/31/2015 Orthostatic hypotension Fadia Alejandre PA-C Active Onset: 08/31/2015 Osteoarthritis Fadia Alejandre PA-C Active Onset: 08/31/2015 Spinal stenosis Fadia Alejandre PA-C Active Note: L5 laminectomy, fusion L5-S1. [facility] Onset: 08/31/2015 Lactose intolerance Fadia Alejandre PA-C Active Note: colo to TI Bx 2016 Onset: 04/14/2017 Closed fracture of patella Kelvin Banuelos M.D. Active Onset: 05/01/2017 H/O: pulmonary embolus Fadia Alejandre PA-C Active Note: March 2017; LDL goal is <100 Onset: 10/10/2017 Taking medication Kam Silver M.D. 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 Active disorder Onset: 12/22/2017 Vitamin D deficiency Kam Silver M.D. 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 Active Onset: 05/27/2018 Abnormal glucose level Kam Silver M.D. Active Onset: 05/27/2018 Knee pain Kam Silver M.D. 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 09/04/2015 Azelastine active not covered by his insurance Medications Medication Date Status Form Strength Qnty SIG Indications Ordering Provider Folic Acid 12/22 Active Tablets 1mg 90tab 1 by mouth E72.10 Andras /2017 s every day Kristyn Silver Xarelto 05/01 Active Tablets 15mg 30tab 1 by mouth Conor s bid, will Devries, start M.D. taking 20mg qd after 21 days Metaxalone 05/01 Active Tablets 800mg 30tab 1 tab by Conor s mouth every Devries, 6-8 hour M.D. for muscle spasm Ventolin HFA 05/01 Active Aerosol 108(90Bas 1inha 2 puffs Z86.711 Conor e) ler every 4 Devries, mcg/Act hours as M.D. needed dyspnea Nebulizer With 05/01 Active 1unit Use with Z86.711 Conor Accessories s albuterol Kristyn Devries Albuterol 05/01 Active Nebulizer (2.5mg/3M 75ml nebulized Z86.711 Conor Sulfate /2016 L) 0.083% every 4 Devries, hours as M.D. needed Venlafaxine HCL 09/12 Active Tablets 37.5mg 60tab take one F41.9 Jane s tablet by jaime Fang twice MD a day Topiramate 08/26 Active Tablets 50mg 60tab Take One Judah E. /2015 s Tablet By Tony DO Mouth Twice A Day Imitrex 04/08 Active Tablets 25mg 9tabs Take 1 Judah E. Tablet By Tony DO Mouth For 1 Dose For Migraine, May Repeat 1 Tablet After 2 Hours as Needed Atorvastatin 11/07 Active Tablets 80mg 90tab take one Conor Calcium s tablet by Jaycob mouth at M.D. bedtime Gabapentin 10/31 Active Capsules 400mg 360ca 2 by mouth M48.00 Judah E. /2014 ps 4 times a Tony DO day Pantoprazole 07/[address] 40mg 60tab Take One Andras Sodium s Tablet By Jaime Silver Twice M.D. A Day Niaspan 00 Active Tablets ER 500mg 2 by mouth Unknown /0000 every day Ondansetron Active Tablets 8mg Place One Unknown Dispers Tablet Under The Tongue Every 8 Hours as Needed For Nausea SM Active Suspension 200-200-2 Take 20ML Unknown Antacid/Antigas / 0mg/5ML By Mouth Every 6 Hours as Needed For Heartburn Nitroglycerin Active Tablets Sub 0.4mg Unknown / Metoprolol Active Tablets ER 50mg Unknown Succinate ER /0000 24HR Lisinopril Active Tablets 10mg Unknown /0000 Brilinta Active Tablets 90mg Unknown /0000 Goodsense Pain 05/01 Hx Tablets ER 650mg 100ta one by Conor bs mouth every Jaycob, - 6 hours as M.D. 05/01 needed pain Levofloxacin 05/01 Hx Tablets 750mg 5tabs 1 by mouth Conor every day Lisa Devries.Nicole 10/10 Senexon 05/01 Hx Tablets 8.6mg 1 tab by Conor mouth bid Lisa Devries M.D. 05/30 Diclofenac 05/[address] 50mg 45tab Take One M19.90 Conor s Tablet By Jaycob, - Mouth Three M.D. 05/30 Times A Day /2016 as Needed With Food For 2 Weeks Oxycodone HCL 04/15 Hx Tablets 5mg 50tab 1-2 every S82.002D s 4-6 hour as Lakisha, - needed pain M.D. 05/30 Ondansetron 09/12 Hx Tablets 8mg 90tab 1 tab by Judah Malin Dispers s mouth every Tony LAMBERT 8 hours as needed nausea Nicotine 08/13 Hx Patches 21mg/24HR 42uni Apply 1 Judah Malin 24HR ts Patch To Tony LAMBERT Skin Daily, Remove AT Bedtime Benzonatate 05/22 Hx Capsules 200mg 90cap Take One Judah Malin s Capsule By Tony LAMBERT Mouth Three Times A Day as Needed For Cough Topiramate 05/02 Hx Tablets 25mg 180ta 1 PO bid R41.3 Judah Malin /2015 bs Tony LAMBERT Maalox Advanced 05/02 Hx Suspension 400-400-4 1bott 20 K21.9 Judah Malin Maximum Strength 0mg/5ML le milliliters Tony LAMBERT by mouth every 6h as needed heartburn Peg-3350/Electro 05/02 Hx Solution 236gm 14330 drink 12/02 R10.9 Judah EEffie Rec ml of the jug Tony LAMBERT the evening before the procedure, the other half the morning of the procedure a/d Niaspan 03/14 Hx Tablets ER 500mg 180ta 1 tabs (500 bs mg) by Tony LAMBERT - mouth every 05/02 night at bedtime x 4 weeks, then 2 tablets by mouth (1000 mg) every night at bedtime Nabumetone 02/25 Hx Tablets 750mg 60tab Take One s Tablet By [place], - Mouth Twice M.D. 05/02 A Day With Food Topiramate 02/19 Hx Tablets 50mg 180ta 1 PO bid Judah Effie bs Tony - 05/02 Benzonatate 02/18 Hx Capsules 200mg 90cap 1 by mouth J30.9 Judah s three times Tony LAMBERT - a day as 05/02 needed cough Nicotine 02/18 Hx Patches 21mg/24HR 42uni apply 1 Z71.6 24HR ts patch to Tony LAMBERT - skin daily, 05/02 remove at at bedtime Nabumetone 12/28 Hx Tablets 750mg 60tab take 1 s tablet by Rosas, - mouth 2 M.D. 02/13 times a day with food Topiramate 12/26 Hx Tablets 25mg 120ta 1 tab (25) G43.909 bs po qhs Vatra, - x1wk, then M.D. 02/19 2 tabs ( mg) qhs x 1 week, then 2 tabs po (50 mg) bid. Saline Nasal 12/26 Hx Solution 0.65% 135ml 2 sprays J30.9 Ryan [place] every 2 Vatra, - hours as M.D. 05/02 needed Crestor 10/10 Hx Tablets 20mg 90tab 1 tab by E78.5 s mouth every Vatra, - night M.D. 11/07 Sumatriptan 09/04 Hx Tablets 50mg 90tab 1 by mouth Ryan Succinate s as needed Sophia, - h/a , march M.D. 09/04 repeat x after 2 h Oxycodone HCL 09/04 Hx Tablets 10mg 180ta take 1 M48.00 Judah E. bs tablet (10 Tony DO - mg) by 05/02 mouth every 4 hours as needed pain Zyrtec Allergy 09/04 Hx Tablets 10mg 90tab 1 by mouth J30.9 Ryan s every day Sophia - M.D. 12/28 Azelastine HCL 09/04 Hx Solution 0.15% 30ml 1-2 sprays J30.9 Ryan (Nasal) intranasal Sophia, - twice a day M.D. 09/04 Fluticasone 09/04 Hx Suspension 50mcg/Act 16gm 2 sprays Ryan Propionate intranasal Vatra, - every day M.D. 10/10 Venlafaxine HCL 09/04 Hx Tablets 37.5mg 30tab Take One F41.9 s Tablet By Vat, Mouth Every M.D. Day Cyclobenzaprine 07/19 Hx Tablets 5mg 90tab 1 PO tid 724.2 Ryan HCL s prn Sophia, - M.D. 09/04 Doxycycline 07/19 Hx Tablets 100mg 2tabs 2 tabs PO 919.4 Ryan Hyclate one time Sophia, - M.D. 08/31 Oxycodone HCL 07/18 Hx Tablets 5mg 180ta 1 tablet by /2014 bs mouth every Vatra, - 4h as M.D. 09/04 needed pain Gabapentin 01/30 Hx Capsules 300mg 90cap 1 by mouth Yogi s three times Deann - a day 10/31 Nortriptyline 01/30 Hx Capsules 10mg 30cap take onse a Yogi HCL s day when Deann, - ready to go 09/04 to sleep Acetaminophen 00/00 Hx Tablets 500mg 2 by mouth Unknown Extra Strength /0000 every 6 - hours as 05/02 needed Oxycodone HCL 00/00 Hx Tablets 5mg 40tab 1 by mouth Unknown /0000 s every 6 - hours as 07/[address] 40mg 90tab 1 by mouth Unknown Sodium /0000 s every day - 07/19 Calcium 500+D Hx Tablets 500-400mg Unknown High Potency /0000 -Unit - 10/10 Axiron 00 Hx Solution 30mg/Act Unknown /0000 - 09/04 Sumatriptan Hx Tablets 25mg one by Unknown Succinate /0000 mouth at - onset of 12/28 headache /2016 prodromal symptoms may repeat dose in 1 hour if needed Trazodone HCL Hx Tablets 150mg 90tab take one Judah E. /0000 s tablet by Toyn DO mouth at bedtime Meloxicam Hx Tablets 15mg 30tab Take One Ryan /0000 s Tablet By Sophia, - Mouth Every M.D. 01/08 Day A Meal Meloxicam Hx Tablets 15mg 1 by mouth Unknown /0000 every day c - food 05/02 Hydrocodone-Acet Hx Tablets 5-325mg Prabhu aminophen /0000 MD Scott - 05/01 Nicotine Hx Patches 21mg/24HR Apply 1 Unknown /0000 24HR Patch To - Skin Daily 04/14 Remove AT Bedtime Diclofenac Hx Gel 1% Apply To Unknown Sodium /0000 Affected - Area S 04/14 Four Times A Day as Needed Meloxicam Hx Tablets 15mg Take One Unknown /0000 Tablet By Mouth Every Day Before A Meal Benzonatate Hx Capsules 200mg Take One Unknown /0000 Capsule By - Mouth Three 10/10 Times A Day as Needed For Cough Peg 00 Hx Solution 240gm Drink 1/2 Unknown 3350/Electrolyte /0000 Rec The Jug The s - Evening 04/14 Before Procedure And Other Half The Morn Trazodone HCL Hx Tablets 150mg Take One Unknown /0000 Tablet By - Mouth AT 05/30 [facility] Pain [facility] Hx Capsules 325mg 1 tab by Unknown Regular Strength /0000 mouth three - times per Immunizations CPT Code Status Date Vaccine Lot # [id number] Given 10/31/2016 Influenza Virus Vaccine Split Virus Use For [id number] Individual 3Yr Older 35596 Given 10/10/2015 Tetnus Injection [id number] 97059 Given 10/10/2015 Pneumococcal Conjugate Vaccine 13 Valent For [id number] Intramuscular Use Q2038 Given 09/04/2015 Influenza Vaccine (Fluzone) Age 3 And Older Q2038 Given 09/04/2015 Influenza Vaccine (Fluzone) Age 3 And Older [id number] 09922 Given 07/29/2014 Tetnus Injection 10387 Given 04/05/2014 Pneumovax Injection 96988 Given 04/05/2014 Tdap injection Vital Signs Date Vital Result Comment 05/27/2018 BP Systolic 120 mmHg BP Diastolic 84 mmHg Body Temperature 96.9 F Heart Rate 64 /min Respiratory Rate 18 /min Height 75 inches 6'3" Weight 196.50 lb BMI (Body Mass Index) 24.6 kg/m2 BSA (Body Surface Area) 2.18 m2 [place] body weight in kilograms 89 O2 % BldC Oximetry 98 % 12/22/2017 BP Systolic 120 mmHg BP Diastolic 84 mmHg Heart Rate 72 /min Respiratory Rate 14 /min Height 75 inches 6'3" Weight 208.12 lb BMI (Body Mass Index) 26.0 kg/m2 BSA (Body Surface Area) 2.23 m2 [place] body weight in kilograms 89 O2 % BldC Oximetry 100 % 10/10/2017 BP Systolic 100 mmHg BP Diastolic 71 mmHg Heart Rate 92 /min Respiratory Rate 16 /min Height 75 inches 6'3" Weight 203.00 lb BMI (Body Mass Index) 25.4 kg/m2 BSA (Body Surface Area) 2.21 m2 [place] body weight in kilograms 89 O2 % BldC Oximetry 98 % 05/01/2017 BP Systolic Sitting Right Arm 120 mmHg BP Diastolic Sitting Right Arm 80 mmHg Heart Rate 72 /min Height 75 inches 6'3" Weight 197.00 lb BMI (Body Mass Index) 24.6 kg/m2 BSA (Body Surface Area) 2.18 m2 [place] body weight in kilograms 89 O2 % BldC Oximetry 95 % 04/15/2017 BP Systolic 122 mmHg BP Diastolic 72 mmHg Heart Rate 76 /min Height 75 inches 6'3" Weight 197.00 lb BMI (Body Mass Index) 24.6 kg/m2 BSA (Body Surface Area) 2.18 m2 [place] body weight in kilograms 89 04/14/2017 Height 75 inches 6'3" Weight 197.00 lb BMI (Body Mass Index) 24.6 kg/m2 BSA (Body Surface Area) 2.18 m2 [place] body weight in kilograms 89 10/31/2016 BP Systolic 124 mmHg BP Diastolic 71 mmHg Heart Rate 76 /min Height 76 inches 6'4" Weight 200.00 lb BMI (Body Mass Index) 24.3 kg/m2 BSA (Body Surface Area) 2.22 m2 09/12/2016 BP Systolic 133 mmHg BP Diastolic 87 mmHg Body Temperature 97.2 F Heart Rate 83 /min Height 76 inches 6'4" Weight 204.00 lb BMI (Body Mass Index) 24.8 kg/m2 BSA (Body Surface Area) 2.23 m2 05/02/2016 BP Systolic 111 mmHg BP Diastolic 75 mmHg Heart Rate 77 /min Height 76 inches 6'4" Weight 206.00 lb BMI (Body Mass Index) 25.1 kg/m2 BSA (Body Surface Area) 2.24 m2 02/19/2016 BP Systolic Sitting Left Arm 121 mmHg BP Diastolic Sitting Left Arm 73 mmHg Heart Rate 86 /min Respiratory Rate 16 /min Height 76 inches 6'4" Weight 201.00 lb BMI (Body Mass Index) 24.5 kg/m2 BSA (Body Surface Area) 2.22 m2 12/28/2015 BP Systolic 111 mmHg BP Diastolic 74 mmHg Heart Rate 121 /min Height 76 inches 6'4" Weight 209.00 lb BMI (Body Mass Index) 25.4 kg/m2 BSA (Body Surface Area) 2.26 m2 O2 % BldC Oximetry 98 % 12/26/2015 BP Systolic 121 mmHg BP Diastolic 72 mmHg Heart Rate 82 /min Height 65 inches 5'5" Weight 199.00 lb BMI (Body Mass Index) 33.1 kg/m2 BSA (Body Surface Area) 1.97 m2 10/31/2015 BP Systolic 117 mmHg BP Diastolic 76 mmHg Heart Rate 80 /min Height 65 inches 5'5" Weight 200.00 lb BMI (Body Mass Index) 33.3 kg/m2 BSA (Body Surface Area) 1.98 m2 10/10/2015 BP Systolic 112 mmHg BP Diastolic 78 mmHg Heart Rate 80 /min Respiratory Rate 22 /min Height 65 inches 5'5" Weight 196.00 lb BMI (Body Mass Index) 32.6 kg/m2 BSA (Body Surface Area) 1.96 m2 09/04/2015 BP Systolic 138 mmHg BP Diastolic 84 mmHg Heart Rate 80 /min Height 65 inches 5'5" Weight 193.00 lb BMI (Body Mass Index) 32.1 kg/m2 BSA (Body Surface Area) 1.95 m2 07/19/2015 BP Systolic 132 mmHg BP Diastolic 82 mmHg Heart Rate 78 /min Height 65 inches 5'5" Weight 184.00 lb BMI (Body Mass Index) 30.6 kg/m2 BSA (Body Surface Area) 1.91 m2 01/30/2015 BP Systolic Sitting Right Arm 101 mmHg BP Diastolic Sitting Right Arm 61 mmHg Heart Rate 88 /min Respiratory Rate 18 /min Height 76.5 inches 6'4.50" Weight 188.00 lb BMI (Body Mass Index) 22.6 kg/m2 BSA (Body Surface Area) 2.17 m2 Results Test Date Test Result H/L Range Note Laboratory test finding 05/21/2018 HDL Cholesterol 36 mg/dL Low >40 1, 2 Cholesterol 300 mg/dL High <200 1, 3 Direct LDL Cholesterol 05/21/2018 LDL Chol. (Direct) 209 mg/dL High 0-99 1 Comment (SEE NOTE) 1, 4 Laboratory test finding 05/21/2018 Triglycerides 325 mg/dL High <150 1, 5 Vitamin D,25-Hydroxy 19.0 ng/mL Low 30.0-100.0 1, 6 Homocyst(E)Ine, P/S 05/21/2018 Homocyst(e)ine, P/S 16.3 umol/L High 0.0- 15.0 1, 7 CBS W/Automated Diff 05/21/2018 White Blood Count 4.8 K/uL 3.4-10.5 1 Red Blood Count 4.15 M/uL Low 4.20-5.80 1 Hemoglobin 13.8 gm/dL 12.8-17.0 1 Hematocrit 40.3 % 38.0-48.0 1 Mean Cell Volume 97.1 fl High 80.0-96.0 1 Mean Corpuscular HGB 33.3 pg High 27.0-33.0 1 Mean Corpuscular HGB Conc 34.2 g/dL 31.7-36.0 1 Platelet Count 218 K/uL 155-360 1 Red Cell Distri Width SD 47.9 fl 36-51 1 Red Cell Distri Width %CV 13.8 % 11.6-15.8 1 Mean Platelet Volume 10.0 fL 6.6-10.6 1 Neut% 56.0 % 33.0-73.0 1 Lymph % 33.6 % 20.0-42.0 1 [place] % 9.8 % 0.0-10.0 1 Eo% 0.2 % 0.0-6.6 1 Bas% 0.4 % 0.0-1.1 1 Neut# 2.70 K/uL 1.8-7.0 1 Lymph # 1.62 K/uL 1.0-4.0 1 [place] # 0.47 K/uL 0.0-0.8 1 Eos # 0.01 K/uL 0.0-0.5 1 Baso # 0.02 K/uL 0.0-0.1 1 Comprehensive Metabolic Panel 05/21/2018 Glucose 116 mg/dL High 74-106 1 BUN 15 mg/dL 7-18 1 Creatinine 1.0 mg/dL 0.6-1.3 1 Glom Filtration Rate, Estimate >60 mL/min >60 1 If >60 mL/min >60 1, 8 BUN/Creat 15.0 ratio 1 Sodium 143 mmol/L 136-145 1 Potassium 4.0 mmol/L 3.5-5.1 1 Chloride 108 mmol/L High 98-107 1 Carbon Dioxide 27 mmol/L 21-32 1 Anion Gap 8 mEq/L 8-16 1 Calcium 9.5 mg/dL 8.5-10.1 1 Total Protein 7.7 g/dL 6.4-8.2 1 Albumin 4.1 g/dL 3.4-5.0 1 Globulin 3.6 g/dL 1.9-4.3 1 Alb/Glob 1.1 ratio 1 Bilirubin,Total 0.5 mg/dL 0.2-1.0 1 Sgot/Ast 20 U/L 15-37 1 SGPT/Alt 28 U/L 12-78 1 Alkaline Phosphatase 57 U/L 45-117 1 Laboratory test finding 05/21/2018 Magnesium 2.3 mg/dL 1.8-2.4 1, 9 Vitamin B12 310 pg/mL 193-986 1, 10 CK 136 U/L 39-308 1, 11 Ua RFX Micro & Culture II 12/22/2017 Urine Color YELLOW Yellow 12 Urine Clarity CLEAR Clear 12 Urine Glucose - Dipstick NEGATIVE mg/dL Negative 12 Urine Bilirubin - Dipstick NEGATIVE Negative 12 Urine Ketone NEGATIVE mg/dL Negative 12 Urine Specific [place] 1.015 1.010-1.030 12 Urine Blood NEGATIVE Negative 12 Urine PH 7.0 6.5-7.5 12 Urine Protein - Dipstick NEGATIVE mg/dL Negative 12 Urine Urobilinogen - Dipstick 0.2 E.U./dL 0.2-1.0 12 Urine Nitrite - Dipstick NEGATIVE Negative 12 Urine Leuk Esterase NEGATIVE Negative 12 Source: URINE, CLEAN CAT <SEE NOTE> 12, 13 Comprehensive Metabolic Panel 12/19/2017 Glucose 89 mg/dL 74-106 12 BUN 12 mg/dL 7-18 12 Creatinine 0.9 mg/dL 0.6-1.3 12 Glom Filtration Rate, Estimate >60 mL/min >60 12 If >60 mL/min >60 12, 14 BUN/Creat 13.3 ratio 12 Sodium 142 mmol/L 136-145 12 Potassium 4.1 mmol/L 3.5-5.1 12 Chloride 104 mmol/L 98-107 12 Carbon Dioxide 31 mmol/L 21-32 12 Anion Gap 7 mEq/L Low 8-16 12 Calcium 9.8 mg/dL 8.5-10.1 12 Total Protein 7.8 g/dL 6.4-8.2 12 Albumin 4.3 g/dL 3.4-5.0 12 Globulin 3.5 g/dL 1.9-4.3 12 Alb/Glob 1.2 ratio 12 Bilirubin,Total 0.8 mg/dL 0.2-1.0 12 Sgot/Ast 22 U/L 15-37 12 SGPT/Alt 39 U/L 12-78 12 Alkaline Phosphatase 77 U/L 45-117 12 CBS W/Automated Diff 12/19/2017 White Blood Count 7.3 K/uL 3.4-10.5 12 Red Blood Count 4.35 M/uL 4.20-5.80 12 Hemoglobin 14.8 gm/dL 12.8-17.0 12 Hematocrit 42.4 % 38.0-48.0 12 Mean Cell Volume 97.5 fl High 80.0-96.0 12 Mean Corpuscular HGB 34.0 pg High 27.0-33.0 12 Mean Corpuscular HGB Conc 34.9 g/dL 31.7-36.0 12 Platelet Count 192 K/uL 155-360 12 Red Cell Distri Width SD 48.7 fl 36-51 12 Red Cell Distri Width %CV 13.9 % 11.6-15.8 12 Mean Platelet Volume 10.5 fL 6.6-10.6 12 Neut% 71.8 % 33.0-73.0 12 Lymph % 19.0 % Low 20.0-42.0 12 [place] % 7.0 % 0.0-10.0 12 Eo% 1.9 % 0.0-6.6 12 Bas% 0.3 % 0.0-1.1 12 Neut# 5.20 K/uL 1.8-7.0 12 Lymph # 1.38 K/uL 1.0-4.0 12 [place] # 0.51 K/uL 0.0-0.8 12 Eos # 0.14 K/uL 0.0-0.5 12 Baso # 0.02 K/uL 0.0-0.1 12 Laboratory test finding 12/19/2017 Magnesium 2.4 mg/dL 1.8-2.4 12, 15 CK 134 U/L 39-308 12, 16 Laboratory test 12/19/2017 Vitamin D,25-Hydroxy 17.9 ng/mL Low 30.0-100.0 12, 17 finding Laboratory test 12/19/2017 HDL Cholesterol 42 mg/dL >40 12, 18 finding Triglycerides 166 mg/dL High <150 12, 19 Homocyst(E)Ine, P/S 12/19/2017 Homocyst(e)ine, P/S 15.1 umol/L High 0.0- 15.0 12, 20 Direct LDL 12/19/2017 LDL Chol. (Direct) 130 mg/dL High 0-99 12 Cholesterol Comment (SEE NOTE) 12, 21 Laboratory test finding 12/19/2017 Cholesterol 192 mg/dL <200 12, 22 Laboratory Studies 09/13/2017 Poc Glucose (mg/dL) 114 mg/dL High 70-100 CBS W/Automated Diff 07/30/2017 White Blood Count 7.9 K/uL 3.4-10.5 23 Red Blood Count 4.60 M/uL 4.20-5.80 23 Hemoglobin 14.8 gm/dL 12.8-17.0 23 Hematocrit 43.2 % 38.0-48.0 23 Mean Cell Volume 93.9 fl 80.0-96.0 23 Mean Corpuscular HGB 32.2 pg 27.0-33.0 23 Mean Corpuscular HGB Conc 34.3 g/dL 31.7-36.0 23 Platelet Count 240 K/uL 150-400 23 Red Cell Distri Width SD 50.9 fl 36-51 23 Red Cell Distri Width %CV 15.0 % 11.6-15.8 23 Mean Platelet Volume 9.8 fL 6.6-10.6 23 Neut% 72.3 % 33.0-73.0 23 Lymph % 21.7 % 20.0-42.0 [address] [place] % 5.7 % 0.0-10.0 23 Eo% 0.0 % 0.0-6.6 23 Bas% 0.3 % 0.0-1.1 23 Neut# 5.70 K/uL 1.8-7.0 23 Lymph # 1.71 K/uL 1.0-4.0 23 [place] # 0.45 K/uL 0.0-0.8 23 Eos # 0.00 K/uL 0.0-0.5 23 Baso # 0.02 K/uL 0.0-0.1 23 Laboratory test finding 07/30/2017 Magnesium 2.4 mg/dL 1.8-2.4 23 LDL Cholesterol Profile 07/30/2017 Cholesterol 273 mg/dL High <200 23, 24 Triglycerides 232 mg/dL High <150 23, 25 HDL Cholesterol 42 mg/dL >40 23, 26 LDL-Cholesterol 185 mg/dL < 100 23, 27 Comprehensive Metabolic Panel 07/30/2017 Glucose 79 mg/dL 74-106 23 BUN 13 mg/dL 7-18 23 Creatinine 1.3 mg/dL 0.6-1.3 23 Glom Filtration Rate, Estimate >60 mL/min >60 23 If >60 mL/min >60 23, 28 BUN/Creat 10.0 ratio 23 Sodium 142 mmol/L 136-145 23 Potassium 4.0 mmol/L 3.5-5.1 23 Chloride 107 mmol/L 98-107 23 Carbon Dioxide 30 mmol/L 21-32 23 Anion Gap 5 mEq/L Low 8-16 23 Calcium 10.3 mg/dL High 8.5-10.1 23 Total Protein 8.3 g/dL High 6.4-8.2 23 Albumin 4.4 g/dL 3.4-5.0 23 Globulin 3.9 g/dL 1.9-4.3 23 Alb/Glob 1.1 ratio 23 Bilirubin,Total 0.8 mg/dL 0.2-1.0 23 Sgot/Ast 17 U/L 15-37 23 SGPT/Alt 32 U/L 12-78 23 Alkaline Phosphatase 83 U/L 45-117 23 Hgb Bld-mCnc 04/28/2017 Hgb Bld-mCnc 11.1 Low 12.8-17.0 MCH RBC Qn Auto 04/28/2017 MCH RBC Qn Auto 32.1 27.0-33.0 MCHC RBC Auto-mCnc 04/28/2017 MCHC RBC Auto-mCnc 33.5 31.7-36.0 MCV RBC Auto 04/28/2017 MCV RBC Auto 95.7 80.0-96.0 PMV Bld Auto 04/28/2017 PMV Bld Auto 9.5 6.6-10.6 Platelets [#/volume] in 04/28/2017 Platelets [#/volume] 442 150-400 Blood by Automated count in Blood by Automated count Potassium SerPl-sCnc 04/28/2017 Potassium SerPl-sCnc 3.5 3.5-5.1 Prot SerPl-mCnc 04/28/2017 Prot SerPl-mCnc 7.5 6.4-8.2 RBC # Bld Auto 04/28/2017 RBC # Bld Auto 3.46 Low 4.20-5.80 RDW RBC Auto-Rto 04/28/2017 RDW RBC Auto-Rto 13.6 11.6-15.8 Sodium SerPl-sCnc 04/28/2017 Sodium SerPl-sCnc 139 136-145 WBC # Bld Auto 04/28/2017 WBC # Bld Auto 7.5 3.4-10.5 Albumin SerPl-mCnc 04/28/2017 Albumin SerPl-mCnc 3.0 Low 3.4-5.0 Albumin/Glob SerPl 04/28/2017 Albumin/Glob SerPl 0.7 Alt SerPl-cCnc 04/28/2017 Alt SerPl-cCnc 58 12-78 Alp SerPl-cCnc 04/28/2017 Alp SerPl-cCnc 123 High 45-117 Laboratory test finding 04/28/2017 Magnesium 2.4 mg/dL 1.8-2.4 29 C-Reactive Protein,Quant 59.0 mg/L High <3.0 29 Comprehensive Metabolic Panel 04/28/2017 Glucose 100 mg/dL 74-106 29 BUN 13 mg/dL 7-18 29 Creatinine 0.8 mg/dL 0.6-1.3 29 Glom Filtration Rate, Estimate >60 mL/min >60 29 If >60 mL/min >60 29, 30 BUN/Creat 16.2 ratio 29 Sodium 139 mmol/L 136-145 29 Potassium 3.5 mmol/L 3.5-5.1 29 Chloride 103 mmol/L 98-107 29 Carbon Dioxide 30 mmol/L 21-32 29 Anion Gap 6 mEq/L Low 8-16 29 Calcium 9.8 mg/dL 8.5-10.1 29 Total Protein 7.5 g/dL 6.4-8.2 29 Albumin 3.0 g/dL Low 3.4-5.0 29 Globulin 4.5 g/dL High 1.9-4.3 29 Alb/Glob 0.7 ratio 29 Bilirubin,Total 0.4 mg/dL 0.2-1.0 29 Sgot/Ast 32 U/L 15-37 29 SGPT/Alt 58 U/L 12-78 29 Alkaline Phosphatase 123 U/L High 45-117 29 CBC 04/28/2017 White Blood Count 7.5 K/uL 3.4-10.5 29 Red Blood Count 3.46 M/uL Low 4.20-5.80 29 Hemoglobin 11.1 gm/dL Low 12.8-17.0 29 Hematocrit 33.1 % Low 38.0-48.0 29 Mean Cell Volume 95.7 fl 80.0-96.0 29 Mean Corpuscular HGB 32.1 pg 27.0-33.0 29 Mean Corpuscular HGB Conc 33.5 g/dL 31.7-36.0 29 Platelet Count 442 K/uL High 150-400 29 Red Cell Distri Width %CV 13.6 % 11.6-15.8 29 Mean Platelet Volume 9.5 fL 6.6-10.6 29 Anion Gap SerPl-sCnc 04/28/2017 Anion Gap SerPl-sCnc 6 Low 8-16 Aspartate 04/28/2017 Aspartate 32 15-37 aminotransferase aminotransferase [Enzymatic activity/vol [Enzymatic activity/volume] in Serum or Plasma BUN SerPl-mCnc 04/28/2017 BUN SerPl-mCnc 13 7-18 BUN/Creat SerPl 04/28/2017 BUN/Creat SerPl 16.2 Bilirub SerPl-mCnc 04/28/2017 Bilirub SerPl-mCnc 0.4 0.2-1.0 Co2 SerPl-sCnc 04/28/2017 Co2 SerPl-sCnc 30 21-32 Calcium SerPl-mCnc 04/28/2017 Calcium SerPl-mCnc 9.8 8.5-10.1 Chloride SerPl-sCnc 04/28/2017 Chloride SerPl-sCnc 103 98-107 Creat SerPl-mCnc 04/28/2017 Creat SerPl-mCnc 0.8 0.6-1.3 Globulin Ser Calc-mCnc 04/28/2017 Globulin Ser Calc-mCnc 4.5 High 1.9-4.3 Glucose [Mass/volume] in 04/28/2017 Glucose [Mass/volume] 100 74-106 Serum or Plasma in Serum or Plasma Hct VFr Bld Auto 04/28/2017 Hct VFr Bld Auto 33.1 Low 38.0-48.0 CBC 04/27/2017 White Blood Count 7.0 K/uL 3.4-10.5 29 Red Blood Count 3.23 M/uL Low 4.20-5.80 29 Hemoglobin 10.3 gm/dL Low 12.8-17.0 29 Hematocrit 31.3 % Low 38.0-48.0 29 Mean Cell Volume 96.9 fl High 80.0-96.0 29 Mean Corpuscular HGB 31.9 pg 27.0-33.0 29 Mean Corpuscular HGB Conc 32.9 g/dL 31.7-36.0 29 Platelet Count 338 K/uL 150-400 29 Red Cell Distri Width %CV 14.0 % 11.6-15.8 29 Mean Platelet Volume 9.7 fL 6.6-10.6 29 Basic Metabolic Panel 04/27/2017 Glucose 105 mg/dL 74-106 29 BUN 11 mg/dL 7-18 29 Creatinine 0.7 mg/dL 0.6-1.3 29 Glom Filtration Rate, Estimate >60 mL/min >60 29 If >60 mL/min >60 29, 31 BUN/Creat 15.7 ratio 29 Sodium 140 mmol/L 136-145 29 Potassium 4.0 mmol/L 3.5-5.1 29 Chloride 105 mmol/L 98-107 29 Carbon Dioxide 31 mmol/L 21-32 29 Anion Gap 4 mEq/L Low 8-16 29 Calcium 9.1 mg/dL 8.5-10.1 29 Laboratory test finding 04/27/2017 Magnesium 2.4 mg/dL 1.8-2.4 29 CBC 04/26/2017 White Blood Count 7.8 K/uL 3.4-10.5 29 Red Blood Count 3.49 M/uL Low 4.20-5.80 29 Hemoglobin 10.8 gm/dL Low 12.8-17.0 29 Hematocrit 33.4 % Low 38.0-48.0 29 Mean Cell Volume 95.7 fl 80.0-96.0 29 Mean Corpuscular HGB 30.9 pg 27.0-33.0 29 Mean Corpuscular HGB Conc 32.3 g/dL 31.7-36.0 29 Platelet Count 281 K/uL 150-400 29 Red Cell Distri Width %CV 14.3 % 11.6-15.8 29 Mean Platelet Volume 9.9 fL 6.6-10.6 29 Blood Culture 04/26/2017 Blood Culture Aerobic NO GROWTH: FINAL <SEE NOTE> 32, 33 Blood Culture Anaerobic NO GROWTH: FINAL <SEE NOTE> 32, 34 Blood Culture 04/26/2017 Blood Culture Aerobic NO GROWTH: FINAL <SEE NOTE> 32, 35 Blood Culture Anaerobic NO GROWTH: FINAL <SEE NOTE> 32, 36 Bacteria Bld Aerobe 04/26/2017 Bacteria Bld Aerobe No Growth Cult Cult Anaerobic blood 04/26/2017 Anaerobic blood No Growth culture culture Aerobic bacterial 04/25/2017 Aerobic bacterial Respiratory Mary respiratory culture respiratory culture Legionella Culture 04/25/2017 Legionella Culture Legionella Speci <SEE 37, 38 NOTE> Respiratory Culture 04/25/2017 Gram Stain >10 SQUAMOUS EPI <SEE 37, 39 W/Gram St NOTE> Gram Stain >25 WBC/LPF 37 Gram Stain MANY GRAM POSITI <SEE NOTE> 37, 40 Gram Stain MODERATE GRAM NE <SEE NOTE> 37, 41 Gram Stain MODERATE GRAM PO <SEE NOTE> 37, 42 Gram Stain MODERATE GRAM PO <SEE NOTE> 37, 43 Respiratory Culture RESPIRATORY ITA <SEE NOTE> 37, 44 Laboratory test finding 04/25/2017 Magnesium 2.4 mg/dL 1.8-2.4 37 Basic Metabolic Panel 04/25/2017 Glucose 129 mg/dL High 74-106 37 BUN 11 mg/dL 7-18 37 Creatinine 0.8 mg/dL 0.6-1.3 37 Glom Filtration Rate, Estimate >60 mL/min >60 37 If >60 mL/min >60 37, 45 BUN/Creat 13.7 ratio 37 Sodium 136 mmol/L 136-145 37 Potassium 3.9 mmol/L 3.5-5.1 37 Chloride 99 mmol/L 98-107 37 Carbon Dioxide 27 mmol/L 21-32 37 Anion Gap 10 mEq/L 8-16 37 Calcium 10.0 mg/dL 8.5-10.1 37 CBC 04/25/2017 White Blood Count 9.0 K/uL 3.4-10.5 37 Red Blood Count 3.70 M/uL Low 4.20-5.80 37 Hemoglobin 12.0 gm/dL Low 12.8-17.0 37 Hematocrit 35.0 % Low 38.0-48.0 37 Mean Cell Volume 94.6 fl 80.0-96.0 37 Mean Corpuscular HGB 32.4 pg 27.0-33.0 37 Mean Corpuscular HGB Conc 34.3 g/dL 31.7-36.0 37 Platelet Count 254 K/uL 150-400 37 Red Cell Distri Width %CV 14.5 % 11.6-15.8 37 Mean Platelet Volume 9.4 fL 6.6-10.6 37 Laboratory test 04/25/2017 Legionella Antigen,Urine Negative Negative 37 , 46 finding Ua RFX Micro & Culture 04/25/2017 Urine Color YELLOW Yellow 37 II Urine Clarity CLEAR Clear 37 Urine Glucose - Dipstick NEGATIVE mg/dL Negative 37 Urine Bilirubin - Dipstick SMALL Negative 37 Urine Ketone NEGATIVE mg/dL Negative 37 Urine Specific [place] >=1.030 1.010-1.030 37 Urine Blood NEGATIVE Negative 37 Urine PH 6.0 Low 6.5-7.5 37 Urine Protein - Dipstick 30 mg/dL High Negative 37 Urine Urobilinogen - Dipstick 2.0 E.U./dL High 0.2-1.0 37 Urine Nitrite - Dipstick NEGATIVE Negative 37 Urine Leuk Esterase NEGATIVE Negative 37 Source: URINE, CLEAN CAT <SEE NOTE> 37, 47 Bilirub Ur Ql Strip.auto 04/25/2017 Bilirub Ur Ql Small High Negative Strip.auto Color Ur 04/25/2017 Color Ur Yellow Yellow Ketones Ur 04/25/2017 Ketones Ur Negative Negative Strip.auto-mCnc Strip.auto-mCnc Leukocyte esterase Ur Ql 04/25/2017 Leukocyte esterase Ur Negative Negative Strip.auto Ql Strip.auto Nitrite Ur Ql Strip.auto 04/25/2017 Nitrite Ur Ql Negative Negative Strip.auto Prot Ur Strip.auto-mCnc 04/25/2017 Prot Ur Strip.auto-mCnc 30 High Negative Urine Legionella 04/25/2017 Urine Legionella Negative Negative pneumophila 1 antigen pneumophila 1 antigen detection b detection by immunoassay Urine appearance 04/25/2017 Urine appearance Clear Clear determination determination Urine glucose 04/25/2017 Urine glucose Negative Negative measurement by automated measurement by test strip automated test strip (mass/volume) Urine hemoglobin 04/25/2017 Urine hemoglobin Negative Negative detection by automated detection by automated test strip test strip Urobilinogen Ur 04/25/2017 Urobilinogen Ur 2.0 High 0.2-1.0 Strip-aCnc Strip-aCnc pH Ur Strip.auto 04/25/2017 pH Ur Strip.auto 6.0 Low 6.5-7.5 Basic Metabolic Panel 04/24/2017 Glucose 112 mg/dL High 74-106 37 BUN 10 mg/dL 7-18 37 Creatinine 0.8 mg/dL 0.6-1.3 37 Glom Filtration Rate, Estimate >60 mL/min >60 37 If >60 mL/min >60 37, 48 BUN/Creat 12.5 ratio 37 Sodium 137 mmol/L 136-145 37 Potassium 3.9 mmol/L 3.5-5.1 37 Chloride 100 mmol/L 98-107 37 Carbon Dioxide 28 mmol/L 21-32 37 Anion Gap 9 mEq/L 8-16 37 Calcium 9.7 mg/dL 8.5-10.1 37 Laboratory test 04/24/2017 Magnesium 2.5 mg/dL High 1.8-2.4 37 finding Activated partial 04/24/2017 Activated partial 42.0 High 23.4-35.0 thromboplastin time thromboplastin time (aPTT) in pl (aPTT) in platelet poor plasma by coagulation assay Laboratory test 04/23/2017 Act Partial Thrombo 62.6 seconds High 23.4- 35.0 37, 49 finding Time Laboratory test 04/23/2017 Magnesium 2.1 mg/dL 1.8-2.4 37 finding Basic Metabolic 04/23/2017 Glucose 108 mg/dL High 74-106 37 Panel BUN 8 mg/dL 7-18 37 Creatinine 0.7 mg/dL 0.6-1.3 37 Glom Filtration Rate, Estimate >60 mL/min >60 37 If >60 mL/min >60 37, 50 BUN/Creat 11.4 ratio 37 Sodium 138 mmol/L 136-145 37 Potassium 3.7 mmol/L 3.5-5.1 37 Chloride 103 mmol/L 98-107 37 Carbon Dioxide 27 mmol/L 21-32 37 Anion Gap 8 mEq/L 8-16 37 Calcium 9.2 mg/dL 8.5-10.1 37 CBC 04/23/2017 White Blood Count 7.8 K/uL 3.4-10.5 37 Red Blood Count 3.84 M/uL Low 4.20-5.80 37 Hemoglobin 12.4 gm/dL Low 12.8-17.0 37 Hematocrit 36.2 % Low 38.0-48.0 37 Mean Cell Volume 94.3 fl 80.0-96.0 37 Mean Corpuscular HGB 32.3 pg 27.0-33.0 37 Mean Corpuscular HGB Conc 34.3 g/dL 31.7-36.0 37 Platelet Count 205 K/uL 150-400 37 Red Cell Distri Width %CV 14.4 % 11.6-15.8 37 Mean Platelet Volume 9.8 fL 6.6-10.6 37 Laboratory test 04/22/2017 Act Partial Thrombo 111.0 seconds High 23.4- 35.0 37, 51 finding Time RDW RBC Auto 04/22/2017 RDW RBC Auto 49.0 36-51 Neutrophils/leuk 04/22/2017 Neutrophils/leuk 62.9 33.0-73.0 NFr Bld Auto NFr Bld Auto Neutrophils # Bld 04/22/2017 Neutrophils # Bld 4.47 1.8-7.0 Auto Auto Laboratory test 04/22/2017 Act Partial Thrombo 63.1 seconds High 23.4- 35.0 37, 52 finding Time Laboratory test 04/22/2017 Act Partial Thrombo 51.5 seconds High 23.4- 35.0 37, 53 finding Time CBS W/Automated 04/22/2017 White Blood Count 7.1 K/uL 3.4-10.5 37 Diff Red Blood Count 3.80 M/uL Low 4.20-5.80 37 Hemoglobin 12.4 gm/dL Low 12.8-17.0 37 Hematocrit 36.0 % Low 38.0-48.0 37 Mean Cell Volume 94.7 fl 80.0-96.0 37 Mean Corpuscular HGB 32.6 pg 27.0-33.0 37 Mean Corpuscular HGB Conc 34.4 g/dL 31.7-36.0 37 Platelet Count 179 K/uL 150-400 37 Red Cell Distri Width SD 49.0 fl 36-51 37 Red Cell Distri Width %CV 14.7 % 11.6-15.8 37 Mean Platelet Volume 10.0 fL 6.6-10.6 37 Neut% 62.9 % 33.0-73.0 37 Lymph % 25.1 % 20.0-42.0 37 [place] % 11.4 % High 0.0-10.0 37 Eo% 0.3 % 0.0-6.6 37 Bas% 0.3 % 0.0-1.1 37 Neut# 4.47 K/uL 1.8-7.0 37 Lymph # 1.78 K/uL 1.0-4.0 37 [place] # 0.81 K/uL High 0.0-0.8 37 Eos # 0.02 K/uL 0.0-0.5 37 Baso # 0.02 K/uL 0.0-0.1 37 Basic Metabolic Panel 04/22/2017 Glucose 101 mg/dL 74-106 37 BUN 11 mg/dL 7-18 37 Creatinine 0.7 mg/dL 0.6-1.3 37 Glom Filtration Rate, Estimate >60 mL/min >60 37 If >60 mL/min >60 37, 54 BUN/Creat 15.7 ratio 37 Sodium 140 mmol/L 136-145 37 Potassium 3.8 mmol/L 3.5-5.1 37 Chloride 106 mmol/L 98-107 37 Carbon Dioxide 25 mmol/L 21-32 37 Anion Gap 9 mEq/L 8-16 37 Calcium 9.0 mg/dL 8.5-10.1 37 Laboratory test 04/22/2017 Act Partial Thrombo 66.0 seconds High 23.4- 35.0 37, 55 finding Time Basophils [#/volume] 04/22/2017 Basophils 0.02 0.0-0.1 in Blood by [#/volume] in Blood Automated count by Automated count Basophils/leuk NFr 04/22/2017 Basophils/leuk NFr 0.3 0.0-1.1 Bld Auto Bld Auto Eosinophil # Bld 04/22/2017 Eosinophil # Bld 0.02 0.0-0.5 Auto Auto Monocytes/leuk NFr 04/22/2017 Monocytes/leuk NFr 11.4 High 0.0-10.0 Bld Auto Bld Auto Monocytes # Bld Auto 04/22/2017 Monocytes # Bld 0.81 High 0.0-0.8 Auto Lymphocytes/leuk NFr 04/22/2017 Lymphocytes/leuk 25.1 20.0-42.0 Bld Auto NFr Bld Auto Lymphocytes 04/22/2017 Lymphocytes 1.78 1.0-4.0 [#/volume] in Blood [#/volume] in Blood by Automated count by Automated count Eosinophil/leuk NFr 04/22/2017 Eosinophil/leuk NFr 0.3 0.0-6.6 Bld Auto Bld Auto CBC 04/21/2017 White Blood Count 7.3 K/uL 3.4-10.5 56 Red Blood Count 3.97 M/uL Low 4.20-5.80 56 Hemoglobin 13.0 gm/dL 12.8-17.0 56 Hematocrit 37.9 % Low 38.0-48.0 56 Mean Cell Volume 95.5 fl 80.0-96.0 56 Mean Corpuscular HGB 32.7 pg 27.0-33.0 56 Mean Corpuscular HGB Conc 34.3 g/dL 31.7-36.0 56 Platelet Count 154 K/uL 150-400 56 Red Cell Distri Width %CV 14.7 % 11.6-15.8 56 Mean Platelet Volume 9.3 fL 6.6-10.6 56 Protime 04/21/2017 Protime 14.1 seconds 12.0-14.4 56 Inr 1.1 0.9-1.1 56, 57 Laboratory test 04/21/2017 Act Partial Thrombo 33.6 seconds 23.4-35.0 56 , 58 finding Time Prothrombin time 04/21/2017 Prothrombin time 14.1 12.0-14.4 CBS W/Automated Diff 04/21/2017 White Blood Count 9.1 K/uL 3.4-10.5 56 Red Blood Count 4.27 M/uL 4.20-5.80 56 Hemoglobin 13.9 gm/dL 12.8-17.0 56 Hematocrit 40.7 % 38.0-48.0 56 Mean Cell Volume 95.3 fl 80.0-96.0 56 Mean Corpuscular HGB 32.6 pg 27.0-33.0 56 Mean Corpuscular HGB Conc 34.2 g/dL 31.7-36.0 56 Platelet Count 165 K/uL 150-400 56 Red Cell Distri Width SD 49.7 fl 36-51 56 Red Cell Distri Width %CV 14.7 % 11.6-15.8 56 Mean Platelet Volume 9.8 fL 6.6-10.6 56 Neut% 66.2 % 33.0-73.0 56 Lymph % 22.5 % 20.0-42.0 [address] [place] % 11.0 % High 0.0-10.0 56 Eo% 0.1 % 0.0-6.6 56 Bas% 0.2 % 0.0-1.1 56 Neut# 6.03 K/uL 1.8-7.0 56 Lymph # 2.05 K/uL 1.0-4.0 [address] [place] # 1.00 K/uL High 0.0-0.8 56 Eos # 0.01 K/uL 0.0-0.5 56 Baso # 0.02 K/uL 0.0-0.1 56 Basic Metabolic Panel 04/21/2017 Glucose 102 mg/dL 74-106 56 BUN 14 mg/dL 7-18 56 Creatinine 1.0 mg/dL 0.6-1.3 56 Glom Filtration Rate, Estimate >60 mL/min >60 56 If >60 mL/min >60 56, 59 BUN/Creat 14.0 ratio 56 Sodium 139 mmol/L 136-145 56 Potassium 4.2 mmol/L 3.5-5.1 56 Chloride 102 mmol/L 98-107 56 Carbon Dioxide 27 mmol/L 21-32 56 Anion Gap 10 mEq/L 8-16 56 Calcium 9.8 mg/dL 8.5-10.1 56 Laboratory Studies 04/09/2017 Poc Glucose (mg/dL) 112 mg/dL High 74-106 Laboratory test finding 05/27/2016 Esophageal Biopsy See Note 60 Comprehensive Metabolic 03/06/2016 Sodium 140 mmol/L 133-145 Panel Potassium 4.5 mmol/L 3.5-5.0 Chloride 107 mmol/L 101-111 Co2 Carbon Dioxide 27 mmol/L 22-32 Anion Gap 6 mmol/L 2-11 Glucose 86 mg/dL 70-100 Blood Urea Nitrogen 19 mg/dL 6-24 Creatinine 1.11 mg/dL 0.67-1.17 BUN/Creatinine Ratio 17.1 8-20 Calcium 9.9 mg/dL 8.6-10.3 Total Protein 7.1 g/dL 6.4-8.9 Albumin 4.6 g/dL 3.2-5.2 Globulin 2.5 g/dL 2-4 Albumin/Globulin Ratio 1.8 1-3 Total Bilirubin 0.60 mg/dL 0.2-1.0 Alkaline Phosphatase 50 U/L 34-104 Alt 16 U/L 7-52 Ast 15 U/L 13-39 Egfr Non- 73.0 >60 Egfr 93.9 >60 61 LDL Cholesterol Profile 03/06/2016 Triglycerides 339 mg/dL 62 Cholesterol 313 mg/dL 63 HDL Cholesterol 32.2 mg/dL 64 LDL Cholesterol 213 mg/dL 65 Comprehensive Metabolic Panel 12/18/2015 Glucose 98 mg/dL 74-106 BUN 16 mg/dL 7-18 Creatinine 1.0 mg/dL 0.6-1.3 Glom Filtration Rate, Estimate >60 mL/min >60 If >60 mL/min >60 66 BUN/Creat 16.0 ratio Sodium 140 mmol/L 136-145 Potassium 3.9 mmol/L 3.5-5.1 Chloride 106 mmol/L 98-107 Carbon Dioxide 26 mmol/L 21-32 Anion Gap 8 mEq/L 8-16 Calcium 9.2 mg/dL 8.5-10.1 Total Protein 7.9 g/dL 6.4-8.2 Albumin 4.1 g/dL 3.4-5.0 Globulin 3.8 g/dL 1.9-4.3 Alb/Glob 1.1 ratio Bilirubin,Total 0.6 mg/dL 0.2-1.0 Sgot/Ast 20 U/L 15-37 SGPT/Alt 50 U/L 12-78 Alkaline Phosphatase 78 U/L 45-117 LDL Cholesterol Profile 12/18/2015 Cholesterol 226 mg/dL High <200 67 Triglycerides 229 mg/dL High <150 68 HDL Cholesterol 38 mg/dL Low >40 69 LDL-Cholesterol 142 mg/dL < 100 70 Laboratory test finding 10/18/2015 Esophageal Biopsy See Note 71 Laboratory test finding 09/25/2015 Antibody Detection See Note 72 LDL Cholesterol Profile 09/25/2015 Cholesterol 318 mg/dL High <200 73 Triglycerides 236 mg/dL High <150 74 HDL Cholesterol 42 mg/dL >40 75 LDL-Cholesterol 229 mg/dL < 100 76 Comprehensive Metabolic Panel 09/25/2015 Glucose 76 mg/dL 74-106 BUN 15 mg/dL 7-18 Creatinine 1.0 mg/dL 0.6-1.3 Glom Filtration Rate, Estimate >60 mL/min >60 If >60 mL/min >60 77 BUN/Creat 15.0 ratio Sodium 139 mmol/L 136-145 Potassium 3.6 mmol/L 3.5-5.1 Chloride 105 mmol/L 98-107 Carbon Dioxide 30 mmol/L 21-32 Anion Gap 4 mEq/L Low 8-16 Calcium 9.5 mg/dL 8.5-10.1 Total Protein 7.4 g/dL 6.4-8.2 Albumin 4.1 g/dL 3.4-5.0 Globulin 3.3 g/dL 1.9-4.3 Alb/Glob 1.2 ratio Bilirubin,Total 0.5 mg/dL 0.2-1.0 Sgot/Ast 17 U/L 15-37 SGPT/Alt 31 U/L 12-78 Alkaline Phosphatase 57 U/L 45-117 Hepatitis C Antibody 09/25/2015 Hepatitis C Antibody Nonreactive Nonreactive Signal/Cutoff ratio < 0.02 <0.80 78 LDL Cholesterol Profile 07/20/2015 Cholesterol 285 mg/dL < 200 79 Triglycerides 280 mg/dL < 150 80 HDL Cholesterol 39 mg/dL > 40 81 LDL-Cholesterol 190 mg/dL < 100 82 Comprehensive Metabolic Panel 07/20/2015 Glucose 129 mg/dL High 74-106 BUN 15 mg/dL 7-18 Creatinine 1.1 mg/dL 0.6-1.3 Glom Filtration Rate, Estimate >60 mL/min >60 If >60 mL/min >60 83 BUN/Creat 13.6 ratio Sodium 140 mmol/L 136-145 Potassium 3.6 mmol/L 3.5-5.1 Chloride 105 mmol/L 98-107 Carbon Dioxide 26 mmol/L 21-32 Anion Gap 9 mEq/L 8-16 Calcium 10.0 mg/dL 8.5-10.1 Total Protein 7.8 g/dL 6.4-8.2 Albumin 4.3 g/dL 3.4-5.0 Globulin 3.5 g/dL 1.9-4.3 Alb/Glob 1.2 ratio Bilirubin,Total 0.7 mg/dL 0.2-1.0 Sgot/Ast 18 U/L 15-37 SGPT/Alt 37 U/L 12-78 Alkaline Phosphatase 61 U/L 45-117 1 E78.5 E55.9 E72.10 Z79.899 2 Reference Guidelines*: Low HDL: ..... < 40 mg/dL Normal: ..... 40-60 mg/dL Desirable: ... > 60 mg/dL *The National Cholesterol Education Program(NCEP) 3 Reference Guidelines*: Desirable: ........... < 200 mg/dL Borderline High: ..... 200-239 mg/dL High: ................ >=240 mg/dL * The National Cholesterol Education Program (NCEP) 4 Possible Familial Hypercholesterolemia. FH should be suspected when fasting LDL cholesterol is above 189 mg/dL or non-HDL cholesterol is above 219 mg/dL. A family history of high cholesterol and heart disease in 1st degree relatives should be collected. J Clin Lipidol 2011;5:133- 140 Performed at: RN - [facility] [address] [id number] Ekg Tech: Ann Gonzalze MD, Phone: [phone] Reference Guidelines*: Normal: ............. < 150 mg/dL Borderline High: .... 150-199 mg/dL High: ............... 200-499 mg/dL Very High: .......... > 500 mg/dL * Source: National Cholesterol Education Program (NCEP) 6 Vitamin D deficiency has been defined by the [place] of [employer] and an Endocrine Society practice guideline as a level of serum 25-OH vitamin D less than 20 ng/mL (1,2). The Endocrine Society went on to further define vitamin D insufficiency as a level between 21 and 29 ng/mL (2). 1. IOM ([place] of [employer]). 2010. Dietary reference intakes for calcium and D. [place]: The National Academies Press. 2. Fior MF, Adele BEEBE, Sherlyn RODRIGUEZ, et al. Evaluation, treatment, and prevention of vitamin D deficiency: an Endocrine Society clinical practice guideline. JCEM. 2010; 96(7):1911-30. Performed at: RN - [facility] [address] [id number] Ekg Tech: Ann Gonzalez MD, Phone: [phone] Performed at: RN - [facility] [address] [id number] Ekg Tech: Ann Gonzalez MD, Phone: [phone] Note: Persistent reduction for 3 months or more in an eGFR <60 mL/min/1.73 m2 defines CKD. Patients with eGFR values >/=60 mL/min/1.73 m2 may also have CKD if evidence of persistent proteinuria is present. The original MDRD equation for estimated GFR is not valid for patients less than 18 years of age. Additional information may be found at [email or web address]. 9 Is Patient Fasting? Fasting 10 Is Patient Fasting? Fasting 11 Is Patient Fasting? Fasting 12 E78.5 Z79.899 Z13.21 13 URINE, CLEAN CATCH 14 Note: Persistent reduction for 3 months or more in an eGFR <60 mL/min/1.73 m2 defines CKD. Patients with eGFR values >/=60 mL/min/1.73 m2 may also have CKD if evidence of persistent proteinuria is present. The original MDRD equation for estimated GFR is not valid for patients less than 18 years of age. Additional information may be found at [email or web address]. 15 Is Patient Fasting? Fasting 16 Is Patient Fasting? Fasting 17 Vitamin D deficiency has been defined by the [place] [employer] and an Endocrine Society practice guideline as a level of serum 25-OH vitamin D less than 20 ng/mL (1,2). The Endocrine Society went on to further define vitamin D insufficiency as a level between 21 and 29 ng/mL (2). 1. IOM ([place] of [employer]). 2010. Dietary reference intakes for calcium and D. [place]: The National Academies Press. 2. Fior MF, Adele [place], Sherlyn RODRIGUEZ, et al. Evaluation, treatment, and prevention of vitamin D deficiency: an Endocrine Society clinical practice guideline. JCEM. 2010; 96(6):1911-30. Performed at: [address] [id number] Ekg Tech: Ann Gonzalez MD, Phone: [phone] 18 Reference Guidelines*: Low HDL: ..... < 40 mg/dL Normal: ..... 40-60 mg/dL Desirable: ... > 60 mg/dL *The National Cholesterol Education Program(NCEP) 19 Reference Guidelines*: Normal: ............. < 150 mg/dL Borderline High: .... 150-199 mg/dL High: ............... 200-499 mg/dL Very High: .......... > 500 mg/dL * Source: National Cholesterol Education Program (NCEP) 20 Performed at: [facility] [id number] Ekg Tech: Ann Gonzalez MD, Phone: [phone] 21 Performed at: [facility] [id number] Ekg Tech: Ann Gonzalez MD, Phone: [phone] 22 Reference Guidelines*: Desirable: ........... < 200 mg/dL Borderline High: ..... 200-239 mg/dL High: ................ >=240 mg/dL * The National Cholesterol Education Program (NCEP) 23 E78.5 K21.9 Z86.711 24 Reference Guidelines*: Desirable: ........... < 200 mg/dL Borderline High: ..... 200-239 mg/dL High: ................ >=240 mg/dL * The National Cholesterol Education Program (NCEP) 25 Reference Guidelines*: Normal: ............. < 150 mg/dL Borderline High: .... 150-199 mg/dL High: ............... 200-499 mg/dL Very High: .......... > 500 mg/dL * Source: National Cholesterol Education Program (NCEP) 26 Reference Guidelines*: Low HDL: ..... < 40 mg/dL Normal: ..... 40-60 mg/dL Desirable: ... > 60 mg/dL *The National Cholesterol Education Program(NCEP) 27 Reference Guidelines*: Optimal:........... <100 mg/dL Near Optimal....... 100-129 mg/dL Borderline High.... 130-159 mg/dL High............... 160-189 mg/dL Very High.......... >=190 mg/dL * Source: National Cholesterol Education Program (NCEP) 28 Note: Persistent reduction for 3 months or more in an eGFR <60 mL/min/1.73 m2 defines CKD. Patients with eGFR values >/=60 mL/min/1.73 m2 may also have CKD if evidence of persistent proteinuria is present. The original MDRD equation for estimated GFR is not valid for patients less than 18 years of age. Additional information may be found at [email or web address]. 29 PULM EMBOLUS, DVT 30 Note: Persistent reduction for 3 months or more in an eGFR <60 mL/min/1.73 m2 defines CKD. Patients with eGFR values >/=60 mL/min/1.73 m2 may also have CKD if evidence of persistent proteinuria is present. The original MDRD equation for estimated GFR is not valid for patients less than 18 years of age. Additional information may be found at [email or web address]. 31 Note: Persistent reduction for 3 months or more in an eGFR <60 mL/min/1.73 m2 defines CKD. Patients with eGFR values >/=60 mL/min/1.73 m2 may also have CKD if evidence of persistent proteinuria is present. The original MDRD equation for estimated GFR is not valid for patients less than 18 years of age. Additional information may be found at [email or web address]. 32 NINO AUTH 04/30 TRUONG 33 NO GROWTH: FINAL REPORT 34 NO GROWTH: FINAL REPORT 35 NO GROWTH: FINAL REPORT 36 NO GROWTH: FINAL REPORT 37 PULM EMBOLUS, DVT 38 Legionella Species Culture Report: No Legionella species isolated. Performed at: - [facility] [id number] Ekg Tech: Ann Gonzalez MD, Phone: [phone] 39 >10 SQUAMOUS EPITHELIAL CELLS/LPF 40 MANY GRAM POSITIVE COCCI 41 MODERATE GRAM NEGATIVE BACILLI 42 MODERATE GRAM POSITIVE BACILLI 43 MODERATE GRAM POS BACILLI SUGGESTIVE OF DIPTHEROIDS 44 RESPIRATORY MARY 45 Note: Persistent reduction for 3 months or more in an eGFR <60 mL/min/1.73 m2 defines CKD. Patients with eGFR values >/=60 mL/min/1.73 m2 may also have CKD if evidence of persistent proteinuria is present. The original MDRD equation for estimated GFR is not valid for patients less than 18 years of age. Additional information may be found at [email or web address]. 46 Presumptive negative for L. pneumophila serogroup 1 antigen in urine, suggesting no recent or current infection. Legionnaires' disease cannot be ruled out since other serogroups and species may also cause disease. Performed at: - [facility] [id number] Ekg Tech: Landon Ortez MD, Phone: [phone] URINE, CLEAN CATCH 48 Note: Persistent reduction for 3 months or more in an eGFR <60 mL/min/1.73 m2 defines CKD. Patients with eGFR values >/=60 mL/min/1.73 m2 may also have CKD if evidence of persistent proteinuria is present. The original MDRD equation for estimated GFR is not valid for patients less than 18 years of age. Additional information may be found at [email or web address]. 49 Is patient on heparin protocol? Y Is patient on anticoagulants? Coumadin 50 Note: Persistent reduction for 3 months or more in an eGFR <60 mL/min/1.73 m2 defines CKD. Patients with eGFR values >/=60 mL/min/1.73 m2 may also have CKD if evidence of persistent proteinuria is present. The original MDRD equation for estimated GFR is not valid for patients less than 18 years of age. Additional information may be found at [email or web address]. 51 CALLED PTT TO ZELALEM Duarte AT [phone] 04/22/17 by LUCHO Is patient on heparin protocol? Y Is patient on anticoagulants? Heparin 52 Is patient on heparin protocol? Y Is patient on anticoagulants? Heparin 53 Is patient on heparin protocol? Y Is patient on anticoagulants? Heparin 54 Note: Persistent reduction for 3 months or more in an eGFR <60 mL/min/1.73 m2 defines CKD. Patients with eGFR values >/=60 mL/min/1.73 m2 may also have CKD if evidence of persistent proteinuria is present. The original MDRD equation for estimated GFR is not valid for patients less than 18 years of age. Additional information may be found at [email or web address]. 55 Is patient on heparin protocol? Y Is patient on anticoagulants? Heparin 56 S/P SURGERY LEFT KNEE, SHARP PAIN IN LUNGS, SOB 57 THERAPEUTIC INR RANGE: 2.0 - 3.0 DVT, Pulmonary embolus, prophylaxis against venous thrombosis or systemic embolization in high risk patients. 2.5 - 3.5 Mechanical heart valves 58 Is patient on anticoagulants? Coumadin 59 Note: Persistent reduction for 3 months or more in an eGFR <60 mL/min/1.73 m2 defines CKD. Patients with eGFR values >/=60 mL/min/1.73 m2 may also have CKD if evidence of persistent proteinuria is present. The original MDRD equation for estimated GFR is not valid for patients less than 18 years of age. Additional information may be found at [email or web address]. 60 OPERATION/PROCEDURE Colonoscopy with bx. DIAGNOSIS: PART 1: "COLON, RANDOM, BIOPSY": - BENIGN COLONIC MUCOSA WITH NO SIGNIFICANT PATHOLOGIC ABNORMALITIES. - NO EVIDENCE OF MICROSCOPIC COLITIS. PART 2: "ESOPHAGUS, BIOPSY": - SQUAMOUS AND COLUMNAR MUCOSA WITH CHRONIC INFLAMMATION. - NEGATIVE FOR INTESTINAL METAPLASIA AND DYSPLASIA. María 1430 GROSS Received in formalin in two appropriately labeled containers with the patient 's name and accession number. Part 1: The specimen is designated as "RANDOM COLON BIOPSY" and consists of multiple pieces of valdes soft rubbery tissue measuring 0.5 x 0.3 x 0.2 cm. in aggregate. The specimen is submitted entirely in a single cassette. The specimen is designated as "ESOPHAGEAL BIOPSY" and consists of multiple pieces of valdes soft rubbery tissue measuring 0.7 x 0.4 x 0.3 cm. in aggregate. The specimen is submitted entirely in a single cassette. CC/serafin PRE OPERATIVE DIAGNOSIS Abd. pain; hematochezia REVIEW CODE CODE: I Signed Electronically signed Dea TAO MD [id number] Because ethnic data is not always readily available, this report includes an eGFR for both -Americans and non- Americans. The National Kidney Disease Education Program (NKDEP) does not endorse the use of the MDRD equation for patients that are not between the ages of 18 and 70, are , have extremes of body size, muscle mass, or nutritional status, or are non- or non-. According to the National Kidney Foundation, irrespective of diagnosis, the stage of the disease is based on the level of kidney function: Stage Description GFR(mL/min/1.73 m(2)) 1 Kidney damage with normal or decreased GFR 90 2 Kidney damage with mild decrease in GFR 60-89 3 Moderate decrease in GFR 30-59 4 Severe decrease in GFR 15-29 5 Kidney failure <15 (or dialysis) 62 Desirable <150 Borderline high 150-199 High 200-499 Very High >500 63 Desirable <200 Borderline high 200-239 High >239 64 Low <40 Desirable: 40-60 High: >60 65 Desirable: <100 mg/dL Near Optimal: 100-129 mg/dL Borderline High: 130-159 mg/dL High: 160-189 mg/dL Very High: >189 mg/dL 66 Note: Persistent reduction for 3 months or more in an eGFR <60 mL/min/1.73 m2 defines CKD. Patients with eGFR values >/=60 mL/min/1.73 m2 may also have CKD if evidence of persistent proteinuria is present. The original MDRD equation for estimated GFR is not valid for patients less than 18 years of age. Additional information may be found at www.kdoqi.org. 67 Reference Guidelines*: Desirable: ........... < 200 mg/dL Borderline High: ..... 200-239 mg/dL High: ................ >=240 mg/dL * The National Cholesterol Education Program (NCEP) 68 Reference Guidelines*: Normal: ............. < 150 mg/dL Borderline High: .... 150-199 mg/dL High: ............... 200-499 mg/dL Very High: .......... > 500 mg/dL * Source: National Cholesterol Education Program (NCEP) 69 Reference Guidelines*: Low HDL: ..... < 40 mg/dL Normal: ..... 40-60 mg/dL Desirable: ... > 60 mg/dL *The National Cholesterol Education Program(NCEP) 70 Reference Guidelines*: Optimal:........... <100 mg/dL Near Optimal....... 100-129 mg/dL Borderline High.... 130-159 mg/dL High............... 160-189 mg/dL Very High.......... >=190 mg/dL * Source: National Cholesterol Education Program (NCEP) 71 OPERATION/PROCEDURE Upper endoscopy DIAGNOSIS: "ESOPHAGUS, BIOPSY": - GASTROESOPHAGEAL TRANSITION ZONE MUCOSA WITH NON-SPECIFIC CHRONIC INFLAMMATION WITH REACTIVE GLANDULAR EPITHELIAL CHANGES. - NO GOBLET CELL/INTESTINAL METAPLASIA OR DYSPLASIA IDENTIFIED, NO SPECIFIC FEATURES OF REFLUX ESOPHAGITIS IDENTIFIED. /[facility] 0957 GROSS Received in formalin in a properly labeled container with the patient's name and accession number designated, "ESOPHAGEAL BIOPSY". The specimen consists of multiple pieces of valdes, soft rubbery tissue with an aggregate measurement of 0.5 x 0.4 x 0.2 cm. Submitted entirely, one cassette. /f PRE OPERATIVE DIAGNOSIS Chau's REVIEW CODE CODE: I Signed Electronically signed EVELIO MARQUES MD [id number] No reportable results 73 Reference Guidelines*: Desirable: ........... < 200 mg/dL Borderline High: ..... 200-239 mg/dL High: ................ >=240 mg/dL * The National Cholesterol Education Program (NCEP) 74 Reference Guidelines*: Normal: ............. < 150 mg/dL Borderline High: .... 150-199 mg/dL High: ............... 200-499 mg/dL Very High: .......... > 500 mg/dL * Source: National Cholesterol Education Program (NCEP) 75 Reference Guidelines*: Low HDL: ..... < 40 mg/dL Normal: ..... 40-60 mg/dL Desirable: ... > 60 mg/dL *The National Cholesterol Education Program(NCEP) 76 Reference Guidelines*: Optimal:........... <100 mg/dL Near Optimal....... 100-129 mg/dL Borderline High.... 130-159 mg/dL High............... 160-189 mg/dL Very High.......... >=190 mg/dL * Source: National Cholesterol Education Program (NCEP) 77 Note: Persistent reduction for 3 months or more in an eGFR <60 mL/min/1.73 m2 defines CKD. Patients with eGFR values >/=60 mL/min/1.73 m2 may also have CKD if evidence of persistent proteinuria is present. The original MDRD equation for estimated GFR is not valid for patients less than 18 years of age. Additional information may be found at www.kdoqi.org. 78 Antibodies to HCV not detected; does not exclude early acute HCV infection. 79 Reference Guidelines*: Desirable: ........... < 200 mg/dL Borderline High: ..... 200-239 mg/dL High: ................ >=240 mg/dL * The National Cholesterol Education Program (NCEP) 80 Reference Guidelines*: Normal: ............. < 150 mg/dL Borderline High: .... 150-199 mg/dL High: ............... 200-499 mg/dL Very High: .......... > 500 mg/dL * Source: National Cholesterol Education Program (NCEP) 81 Reference Guidelines*: Low HDL: ..... < 40 mg/dL Normal: ..... 40-60 mg/dL Desirable: ... > 60 mg/dL *The National Cholesterol Education Program(NCEP) 82 Reference Guidelines*: Optimal:........... <100 mg/dL Near Optimal....... 100-129 mg/dL Borderline High.... 130-159 mg/dL High............... 160-189 mg/dL Very High.......... >=190 mg/dL * Source: National Cholesterol Education Program (NCEP) 83 Note: Persistent reduction for 3 months or more in an eGFR <60 mL/min/1.73 m2 defines CKD. Patients with eGFR values >/=60 mL/min/1.73 m2 may also have CKD if evidence of persistent proteinuria is present. The original MDRD equation for estimated GFR is not valid for patients less than 18 years of age. Additional information may be found at www.kdoqi.org. Procedures Date CPT Code Description Status 10/10/2017 57625 EKG-Tracing And Report Completed 05/30/2017 15954 Radiology, Distal Femur--Knee 1 Or 2 Views Completed 05/30/2017 89560 Radiology, Distal Femur--Knee 1 Or 2 Views Completed 04/22/2017 13923 Echocardiogram Complete Completed 04/17/2017 51662 Patella FX open w/internal fixation and/or patellectomy Completed soft tis 09/12/2016 26190 Eye Exam New Patient Comprehensive Completed 05/27/2016 42930 Colonoscopy With Biopsy Completed 05/27/2016 28151 Endoscopy Small Intestine W/Biopsy Completed 12/28/2015 33872 Radiology, Both Knees Standing Completed 12/28/2015 92273 Radiology, Both Knees Standing Completed 12/28/2015 12628 Radiology, Distal Femur--Knee 1 Or 2 Views Completed 12/28/2015 65850 Radiology, Distal Femur--Knee 1 Or 2 Views Completed 10/18/2015 63711 EGD With Biopsy Completed 09/04/2015 01467 Nerve Conduction 5-6 Studies Completed 09/04/2015 14755 Needle Electromyography Complete, Five Or More Muscles Completed Studied 02/03/2015 78301 Tranforaminal Lumbar Or Sacral Epidural Inject Single Completed Level Encounters Type Date Location Provider CPT E/M Dx Office Visit 05/27/2018 9:40a Primary Care Office Kam Silver M.D. 23760 E78.5 E55.9 E72.10 Z79.899 I25.10 F17.200 K21.9 R73.09 M25.562 M25.561 Office Visit 12/22/2017 9:40a Primary Care Office Kam Silver M.D. 37046 I25.10 E78.5 E55.9 Z79.899 E72.10 F17.200 Office Visit 10/10/2017 8:40a Primary Care Office Kam Silver M.D. 45762 E78.5 K21.9 Z79.899 I25.10 Z13.21 Office Visit 05/01/2017 9:30a Primary Care Office Fadia Alejandre, 12138 S82.002A PA-C K21.9 G43.109 E78.5 M19.90 Z86.711 Office Visit 04/14/2017 2:00p Orthopaedic Office Kelvin Banuelos M.D. 05304 S82.002A Office Visit 10/31/2016 9:30a Primary Care Office Fadia Alejandre, 51994 T43.226D PA-C K22.70 R42 G43.109 F17.200 Z71.6 R45.4 M19.90 Z23 Office Visit 09/12/2016 9:30a Primary Care Office Fadia Alejandre, 65656 T43.216A PA-C R42 K22.70 F17.200 Z71.6 R94.113 Office Visit 05/02/2016 2:30p Primary Care Office Fadia Alejandre, 90698 M19.90 PA-C E78.5 K22.70 M48.00 G43.909 Z71.6 F17.200 R41.3 K21.9 K92.0 R10.9 Office Visit 02/19/2016 1:30p Primary Care Office Fadia Alejandre, 23136 M19.90 PA-C E78.5 K22.70 M48.00 G43.909 Z71.6 F17.200 J30.9 Office Visit 02/15/2016 3:00p Orthopaedic Office Zulema Crump, [facility] 34912 M17.0 M25.561 M25.562 Office Visit 12/28/2015 2:00p Orthopaedic Office Zulema Crump, 29106 M25.562 RPA M25.561 M17.0 Office Visit 12/26/2015 10:00a GI Fadia Alejandre PA-C 09381 E78.5 K22.70 M48.00 G43.909 Z71.6 F17.200 J30.9 M19.90 Office Visit 10/31/2015 1:00p MAEGAN Alejandre PA-C 39552 K22.70 M48.00 E78.5 G43.909 Office Visit 10/10/2015 9:45a MAEGAN Cortes M.D. 50566 Z72.0 M48.00 E78.5 G43.909 K22.70 Z00.01 Z23 Z00.01 Office Visit 09/04/2015 9:00a MAEGAN Alejandre PA-C 13826 G43.909 Z23 F41.9 K22.70 Z11.59 E78.5 M48.00 J30.9 Office Visit 07/19/2015 1:30p MAEGAN Alejandre PA-C 20409 919.4 346.90 530.85 272.4 530.81 724.2 458.0 V70.0 Office Visit 01/30/2015 3:20p [place] [address] 724.3 Plan of Care Future Appointment(s):08/17/2018 8:45 am - Mammography Supervisor at [facility] Busati5808/25 9:40 am - Kam Silver M.D. at [facility] Ltbxjy0405/27/2018 - Kam Silver M.D.E78.5 Hyperlipidemia, unspecifiedNew Labs:Nadeem Lipid EfatlW37.9 Vitamin D deficiency, unspecifiedNew Labs:Vitamin D,25-IudnkiqS65.10 Disorders of sulfur-bearing amino-acid metabolism, unspNew Labs:Homocyst(E)Ine, P/ SZ79.899 Other intermediate (current) drug therapyNew Labs:CBS W/Automated DiffCK- MB (Mass)Comprehensive Metabolic PanelMagnesiumVitamin B12I25.10 Athscl heart disease of [place] coronary artery w/o ang sobueR18.200 Nicotine dependence, unspecified, drirdczoytqeyB96.9 Gastro-esophageal reflux disease without mpwrogxzvlfQ91.09 Other abnormal glucoseNew Labs:Glycohemoglobin A1cM25.562 Pain in left kneeNew Xrays:Knee, Complete, 4 Or More Views, LTM25.561 Pain in right kneeNew Xrays:Knee, Complete, 4 Or More Views, RTReferral:Ruth Thomas MD, Surgery,OrthopedicFollow up:f/u in 3 months after labs- bring in all meds for next appt
[2018-06-18 16:53] VITALS: BP 125/78
--- NOTE | 2018-06-18 16:55 | UC ---
Dental HPI - HPI Summary HPI Summary: 42 yo male presents with right lower tooth pain for the last week. He tells me that he knows he has bad teeth and he gets infections a few times a year. He had a dentist, but he does not like them because they caused him pain and pulled out his top teeth for "no reason". He is able to eat and drink, but has significant pain. Has been using Oragel, which helps but only for "10 minutes". Denies fever or chills - History of Current Complaint Chief Complaint: UCDentalProblem Stated Complaint: DENTAL COMPLAINT Time Seen by Provider: 06/18/18 16:55 Hx Obtained From: Patient Onset/Duration: Gradual Onset Severity: Severe Pain Intensity: 10 Pain Scale Used: 0-10 Numeric - Allergies/Home Medications Allergies/Adverse Reactions: Allergies Allergy/AdvReac Type Severity Reaction Status Date / Time environmental Allergy Congestion Uncoded 06/18/18 16:43 PMH/Surg Hx/FS Hx/Imm Hx Endocrine History: Dyslipidemia Cardiovascular History: Cardiac Disease, Hypertension - Surgical History Surgical History: Yes Surgery Procedure, Year, and Place: right ankle, back with 2 carbon fiber frames , two rods with screws. CARDIAC STENTS 08/2017. LEFT KNEE SURGERY - Family History Known Family History: Positive: Cardiac Disease, Hypertension - Social History Lives: With Family Alcohol Use: None Substance Use Type: None Substance Use Comment - Amount & Last Used: 2 pots coffee per day Smoking Status (MU): Heavy Every Day Tobacco Smoker Type: Cigarettes Amount Used/How Often: 1 PPD Have You Smoked in the Last Year: Yes - Immunization History Most Recent Influenza Vaccination: July 2017 Most Recent Pneumonia Vaccination: July 2017 Review of Systems Constitutional: Negative Skin: Negative ENT: Dental Pain Respiratory: Negative Cardiovascular: Negative Gastrointestinal: Negative Neurovascular: Negative Neurological: Negative Psychological: Negative All Other Systems Reviewed And Are Negative: Yes Physical Exam - Summary Physical Exam Summary: GENERAL: Mild pain distress SKIN: No rashes, sores, lesions, or open wounds. HEENT: Head: AT/NC Nose: NTTP maxillary and frontal sinus. Throat: Posterior oropharynx without exudates, erythema, or tonsillar enlargement. Uvula midline. NECK: Supple. Nontender. No lymphadenopathy. CHEST: No accessory muscle use. Breathing comfortably and in no distress. CV: Pulses intact. Brisk cap refill. NEURO: Alert. CN II-XII grossly intact. PSYCH: Age appropriate behavior. Triage Information Reviewed: Yes Vital Signs: Initial Vital Signs Temp 96.7 F 06/18/18 16:46 Pulse 67 06/18/18 16:46 Resp 16 06/18/18 16:46 BP 125/78 06/18/18 16:46 Pulse Ox 99 06/18/18 16:46 Vital Signs Reviewed: Yes Dental: Positive: Percussion Tenderness @ - Tooth 30, Gross Decay/Caries @ - throughout, Abscess @ - Tooth 30. Negative: Cellulitis @, Cervical Lymphadenopathy, Bleeding Dental Complaint Course/Dx - Course Course Of Treatment: Tooth 30 abscess - Differential Dx/Diagnosis Provider Diagnoses: Tooth 30 abscess Discharge - Sign-Out/Discharge Documenting (check all that apply): Patient Departure - Discharge Plan Condition: Stable Disposition: HOME Prescriptions: Amoxicillin PO (*) [Amoxicillin 500 MG CAP*] 500 mg PO Q12H #14 cap Lidocaine 2% VISCOUS* [Xylocaine 2% Viscous*] 10 ml SWISH SPIT Q6H PRN #250 ml PRN Reason: Pain Patient Education Materials: Dental Abscess (ED) Referrals: Kam Silver MD [Primary Care Provider] - Additional Instructions: If you develop a fever, shortness of breath, chest pain, new or worsening symptoms - please call your PCP or go to the ED. Per institutional requirements, I have reviewed the chart, however, I was not consulted specifically or made aware of this patient by the above midlevel provider. I did not personally evaluate, interact with , or disposition this patient. - Billing Disposition and Condition Condition: STABLE Disposition: Home
== END 2018-06-18 17:13 | disposition home or self-care (01) ==
LOC: UCCORT 15:49
DX: K04.7 Periapical abscess without sinus (principal); F17.210 Nicotine dependence, cigarettes, uncomplicated
CPT/HCPCS: 99212; G0463

== ENCOUNTER 2018-09-07 17:58 | Emergency (ER) | payer SELFPAY ==
[2018-09-07 19:11] VITALS: BP 119/66
--- NOTE | 2018-09-07 19:41 | UC ---
Abdominal Pain Male HPI - HPI Summary HPI Summary: 43-year-old male presents with one-week history of right sided abdominal pain. States pain originates on the right side immediately underneath his rib cage and radiates down into the right lower quadrant. Describes pain as severe. Worsens with cough or movement. Associated with some subjective fever. States he had one episode of emesis yesterday morning. He also reports pain radiated up into his right neck on one occasion. Denies chest pain, palpitations, dysuria, frequency, urgency, hematuria. - History of Current Complaint Chief Complaint: UCGeneralIllness Stated Complaint: SHARP RT SIDE PAIN Time Seen by Provider: 09/07/18 19:15 Hx Obtained From: Patient Onset/Duration: Sudden Onset, Lasting Days - 7 Severity Currently: Severe Pain Intensity: 8 Location: Discrete At: RUQ Radiates to: RLQ Character: Other - "Severe" Aggravating Factor(s): Movement Alleviating Factor(s): Nothing Associated Signs And Symptoms: Positive: Fever, Cough, Nausea, Vomiting. Negative: Diaphoresis, Chest Pain, Dizzy, Back Pain, Constipation, Blood in Stool, Urinary Symptoms, Diarrhea - Allergies/Home Medications Allergies/Adverse Reactions: Allergies Allergy/AdvReac Type Severity Reaction Status Date / Time environmental Allergy Congestion Uncoded 09/07/18 19:12 PMH/Surg Hx/FS Hx/Imm Hx Endocrine History: Dyslipidemia Cardiovascular History: Hypertension, Myocardial Infarction GI/ History: Gastroesophageal Reflux - Surgical History Surgical History: Yes Surgery Procedure, Year, and Place: right ankle, back with 2 carbon fiber frames , two rods with screws. CARDIAC STENTS 08/2017. LEFT KNEE SURGERY - Family History Known Family History: Positive: Cardiac Disease, Hypertension - Social History Occupation: Unemployed Lives: With Family Alcohol Use: None Substance Use Type: None Substance Use Comment - Amount & Last Used: 2 pots coffee per day Smoking Status (MU): Heavy Every Day Tobacco Smoker Type: Cigarettes Amount Used/How Often: 1/2 PPD Have You Smoked in the Last Year: Yes - Immunization History Most Recent Influenza Vaccination: July 2017 Most Recent Pneumonia Vaccination: July 2017 Review of Systems Constitutional: Fever Skin: Negative Respiratory: Cough Cardiovascular: Negative Gastrointestinal: Abdominal Pain, Vomiting, Nausea Genitourinary: Negative Is Patient Immunocompromised?: No All Other Systems Reviewed And Are Negative: Yes Physical Exam Triage Information Reviewed: Yes Appearance: Ill-Appearing - Chronically, Pain Distress - Mild discomfort, holding right side of abdomen Vital Signs: Initial Vital Signs Temp 97.3 F 09/07/18 19:03 Pulse 87 09/07/18 19:03 Resp 13 09/07/18 19:03 BP 119/66 09/07/18 19:03 Pulse Ox 99 09/07/18 19:03 Vital Signs Reviewed: Yes ENT: Positive: Pharynx normal, TMs normal, Uvula midline. Negative: Nasal congestion, Nasal drainage, Sinus tenderness Neck: Positive: Supple, Nontender, No Lymphadenopathy Respiratory: Positive: Lungs clear, Normal breath sounds, No respiratory distress Cardiovascular: Positive: RRR, No Murmur, Pulses Normal, Brisk Capillary Refill Abdomen Description: Positive: No Organomegaly, Soft, Other: - Tenderness RUQ and RLQ without rebound or pertoneal signs. Negative: CVA Tenderness (R), CVA Tenderness (L), Distended, Guarding Bowel Sounds: Positive: Present Neurological: Positive: Alert Skin Exam: Normal Abd Pain Male Course/Dx - Course Course Of Treatment: 43 year old male with 1 week history of right sided abdominal pain. His history and exam present a wide differential for cause therefore recommend further evaluation in the emergency room. Patient verbalizes understanding. He elects to go to ED via private vehicle. - Differential Dx/Clinical Impression Differential Diagnosis/HQI/PQRI: Appendicitis, Gall Bladder Disease, Pneumonia, Renal Colic, Urinary Tract Infection Provider Diagnoses: acute abdominal pain - Physician Notification/Consults Discussed Patient Care With: Rosamaria Gonzalez [facility] ED Time Discussed With Above Provider: 19:45 Instructed by Provider To: MD Will See In ED Discharge - Sign-Out/Discharge Documenting (check all that apply): Patient Departure All imaging exams completed and their final reports reviewed: No Studies - Discharge Plan Condition: Stable Disposition: HOME-RECOMMEND TO ED Patient Education Materials: Acute Abdominal Pain (ED) Referrals: Nadeem BOO,Kam [Primary Care Provider] - Additional Instructions: Based on your symptoms and exam I recommend that you go directly to the [facility] for evaluation of your abdominal pain. Do not eat or drink anything until you have been evaluated. Go directly to the emergency room from here. - Billing Disposition and Condition Condition: STABLE Disposition: Home-Recommend to ED
== END 2018-09-07 19:46 | disposition home health service (06) ==
LOC: UCCORT 17:58
DX: R10.9 Unspecified abdominal pain (principal); I10 Essential (primary) hypertension; I25.2 Old myocardial infarction; F17.210 Nicotine dependence, cigarettes, uncomplicated
CPT/HCPCS: 99212; G0463

== ENCOUNTER 2019-09-22 14:37 | Emergency (ER) | payer OTHER ==
[2019-09-22 15:38] VITALS: BP 100/74
--- NOTE | 2019-09-22 16:15 | ED ---
Respiratory - HPI Summary HPI Summary: 44 yr old with the complaint of SOB, and coughing. He has pain in his back as well on the left and right posterior ribs. Worse with coughing. He is concerned because despite using his inhaler he has not been getting relief. In 2017 he had OK and stents. He states at that time he had no pain, but that he was having SOB and his inhalers were not working. The patient has sob that seems to be getting worse the past couple of days. He has not had fever. His symptoms began with runny nose two weeks ago. He is a smoker. - History of Current Complaint Chief Complaint: UCRespiratory Stated Complaint: COUGH,CONGESTION Time Seen by Provider: 09/22/19 15:53 Pain Intensity: 4 - Allergy/Home Medications Allergies/Adverse Reactions: Allergies Allergy/AdvReac Type Severity Reaction Status Date / Time No Known Drug Allergies Allergy See Comment Verified 09/22/19 15:26 environmental Allergy Congestion Uncoded 09/22/19 15:26 Home Medications: Home Medications Heart Healthy Flu Medication 1 dose PO Q8H PRN 09/22/19 [History Confirmed 09/22] PMH/Surg Hx/FS Hx/Imm Hx Cardiovascular History: Reports: Hx Angina, Hx Coronary Artery Disease, Hx Hypercholesterolemia, Hx Hypotension, Hx Myocardial Infarction Respiratory History: Reports: Hx Pulmonary Embolism, Other Respiratory Problems/ Disorders - Recent chronic cough; current smoker. Denies: Hx Asthma GI History: Reports: Hx Gastroesophageal Reflux Disease Musculoskeletal History: Reports: Hx Back Problems, Other Musculoskeletal History - Multiple fx Sensory History: Denies: Hx Contacts or Glasses, Hx Hearing Aid Opthamlomology History: Denies: Hx Contacts or Glasses Neurological History: Reports: Hx Headaches, Hx Migraine, Other Neuro Impairments/Disorders - r/t Kleinfelter syndrome Psychiatric History: Reports: Hx Anxiety - Surgical History Surgery Procedure, Year, and Place: right ankle, back with 2 carbon fiber frames , two rods with screws. CARDIAC STENTS 08/2017. LEFT KNEE SURGERY Infectious Disease History: No Infectious Disease History: Denies: Traveled Outside the [place] in Last 30 Days - Family History Known Family History: Positive: Cardiac Disease, Hypertension - Social History Occupation: Employed Full-time Alcohol Use: None Hx Substance Use: Yes Substance Use Type: Reports: Excessive Caffeine Substance Use Comment - Amount & Last Used: Dr Ervin said drink more coffee. Hx Tobacco Use: No Smoking Status (MU): Light Every Day Tobacco Smoker Type: Cigarettes Amount Used/How Often: 1/4 PPD Have You Smoked in the Last Year: Yes Review of Systems Constitutional: Negative Positive: Chest Pain Positive: Shortness Of Breath, Cough All Other Systems Reviewed And Are Negative: Yes Physical Exam Triage Information Reviewed: Yes Vital Signs On Initial Exam: Initial Vitals Temp Pulse Resp BP Pulse Ox 97.5 F 72 18 100/74 100 09/22/19 15:33 09/22/19 15:33 09/22/19 15:33 09/22/19 15:33 09/22/19 15:33 Vital Signs Reviewed: Yes Appearance: Positive: Well-Appearing, No Pain Distress Skin: Positive: Warm, Skin Color Reflects Adequate Perfusion Head/Face: Positive: Normal Head/Face Inspection Eyes: Positive: EOMI ENT: Positive: Normal ENT inspection Neck: Positive: Nontender Respiratory/Lung Sounds: Positive: Clear to Auscultation, Breath Sounds Present Cardiovascular: Positive: RRR. Negative: Murmur Abdomen Description: Negative: Distended Musculoskeletal: Positive: Strength/ROM Intact Neurological: Positive: Sensory/Motor Intact, Alert, Oriented to Person Place, Time, CN Intact II-III, Speech Normal Psychiatric: Positive: Normal Diagnostics - Vital Signs Vital Signs Temp Pulse Resp BP Pulse Ox 09/22/19 15:33 97.5 F 72 18 100/74 100 - Laboratory Lab Statement: Any lab studies that have been ordered have been reviewed, and results considered in the medical decision making process. - EKG 09/22/19 Cardiac Rate: NL EKG Rhythm: Sinus Bradycardia ST Segment: Normal Ectopy: None Disposition - Course Course Of Treatment: 44 yr old with SOB and coughing. He is not better despite using his nebs. He was advised to go to the hospital by ambulance for work up of his SOB. He signed out AMA. He states that in the past he has no CP with OK , just shortness of breath. he took aspirin today already. - Diagnoses Provider Diagnoses: Shortness of breath Discharge ED - Sign-Out/Discharge Documenting (check all that apply): Patient Departure All imaging exams completed and their final reports reviewed: No Studies - Discharge Plan Condition: Good Disposition: AGAINST MEDICAL ADVICE Referrals: Castro Arias MD [Primary Care Provider] - - Billing Disposition and Condition Condition: GOOD Disposition: Against Medical Advice
== END 2019-09-22 16:12 | disposition left against medical advice (07) ==
LOC: UCCORT 14:37
DX: R06.02 Shortness of breath (principal); R05 Cough; M54.9 Dorsalgia, unspecified; R07.81 Pleurodynia; I25.10 Atherosclerotic heart disease of native coronary artery without angina pectoris; I25.2 Old myocardial infarction; F17.210 Nicotine dependence, cigarettes, uncomplicated; Z91.09 Other allergy status, other than to drugs and biological substances
CPT/HCPCS: 93005; 99212; G0463